=== PATIENT | male | born 1945 | race Caucasian/White ===

== ENCOUNTER 2018-09-13 17:09 | Emergency (ER) | payer MEDICARE, MEDICAID ==
[~2018-09-13] VITALS: Ht 177.8 cm; Wt 97.0 kg
[2018-09-13] MEDS ORDERED: enoxaparin 100mg/ml syringe SUBCUT ONE (18:05)
[2018-09-13 18:44] LABS: BASOPHILS % (AUTO) 0.5 % (0-1); EOSINOPHILS # (AUTO) 0.3 X10'3 (0-0.9); EOSINOPHILS % (AUTO) 3.6 % (0-6); HEMATOCRIT 39.7 % (42.0-52.0); HEMOGLOBIN 13.2 g/dl (14.0-17.9); LYMPHOCYTES # (AUTO) 2.7 X10'3 (1.1-4.8); MEAN CORPUSCULAR HEMOGLOBIN 32.2 PG (27.0-31.0); MEAN CORPUSCULAR HGB CONC 33.4 % (33.0-36.5); MEAN CORPUSCULAR VOLUME 96.6 FL (78-98); MEAN PLATELET VOLUME 7.2 FL (7.4-10.4); MONOCYTES # (AUTO) 0.8 X10'3 (0-0.9); MONOCYTES % (AUTO) 10.8 % (2-12); NEUTROPHILS # (AUTO) 3.7 X10'3 (1.8-7.7); NEUTROPHILS % (AUTO) 49.1 % (42-75); PLATELET COUNT 291 X10'3 (140-440); RED BLOOD COUNT 4.11 X10'6 (4.70-6.10); RED CELL DISTRIBUTION WIDTH 14.7 % (11.5-14.5); WHITE BLOOD COUNT 7.6 X10'3 (4.5-11.0)
[2018-09-13 19:08] LABS: PARTIAL THROMBOPLASTIN TIME 26 SECONDS (22-32); PROTHROMBIN TIME 10.2 SECONDS (9.0-12.0)
[2018-09-13 19:16] LABS: ALANINE AMINOTRANSFERASE 25 U/L (12-78); ALBUMIN 2.3 G/DL (3.4-5.0); ALBUMIN/GLOBULIN RATIO 0.4 (1.1-1.5); ALKALINE PHOSPHATASE 99 IU/L (46-116); ANION GAP 5 (8-16); ASPARTATE AMINO TRANSFERASE 17 U/L (10-37); BILIRUBIN,TOTAL 0.1 MG/DL (0.1-1.0); BLOOD UREA NITROGEN 17 MG/DL (7-18); CALCIUM 8.6 MG/DL (8.5-10.1); CHLORIDE 104 MMOL/L (99-107); CREATININE 1.13 MG/DL (0.60-1.10); GLUCOSE 108 MG/DL (70-104); POTASSIUM 3.8 MMOL/L (3.5-5.1); SODIUM 136 MMOL/L (135-145); TOTAL CARBON DIOXIDE 27.4 MMOL/L (24-32); TOTAL PROTEIN 7.6 G/DL (6.4-8.2); eGFR 64 ML/MIN
[2018-09-13 19:23] LABS: MAGNESIUM 2.1 MG/DL (1.5-2.4)
[2018-09-13] MEDS ORDERED: ENOX100S3 SQ (19:41)
[2018-09-13 19:48] VITALS: BP 140/71
== END 2018-09-13 20:29 | disposition home or self-care (01) ==
LOC: ER 17:09
DX: I82.401 Acute embolism and thrombosis of unspecified deep veins of right lower extremity (principal); I11.0 Hypertensive heart disease with heart failure; I50.9 Heart failure, unspecified; G89.29 Other chronic pain; Z88.8 Allergy status to other drugs, medicaments and biological substances; Z60.2 Problems related to living alone
CPT/HCPCS: 36415; 71045; 80053; 83735; 83880; 85025; 85610; 85730; 93005; 96372; 99284; J1650

== ENCOUNTER 2019-04-22 05:00 | Emergency (ER) | payer MEDICARE, MEDICAID ==
[~2019-04-22] VITALS: Ht 177.8 cm; Wt 116.1 kg
[~2019-04-22 05:00] MED LIST: CEPH500C5 PO
[2019-04-22] MEDS ORDERED: morphine 4 MG/ML inj SYRINge IV ONE (05:05)
[2019-04-22] MEDS ORDERED: ondansetron/PF 4mg/2ml inj IV ONE (05:05)
[2019-04-22] MEDS ORDERED: HYDR-3965 PO (05:52)
[2019-04-22] MEDS ORDERED: ONDA4TAB6 PO (05:52)
--- NOTE | 2019-04-22 06:52 | NUR ---
STILL WAITING ON CLERICAL SPECIALIST
--- NOTE | 2019-04-22 08:55 | NUR ---
have called a few times for the ortho splint. still waiting. pt has eaten breakfast.
--- NOTE | 2019-04-22 09:19 | NUR ---
pt sleeping again.
[2019-04-22 10:53] VITALS: BP 110/52
== END 2019-04-22 12:17 | disposition home or self-care (01) ==
LOC: ER 05:00
DX: S32.048A Other fracture of fourth lumbar vertebra, initial encounter for closed fracture (principal); I11.0 Hypertensive heart disease with heart failure; I50.9 Heart failure, unspecified; E78.00 Pure hypercholesterolemia, unspecified; G89.29 Other chronic pain; Z88.8 Allergy status to other drugs, medicaments and biological substances; Z79.2 Long term (current) use of antibiotics; Z79.899 Other long term (current) drug therapy; W18.39XA Other fall on same level, initial encounter; Y93.89 Activity, other specified; Y92.89 Other specified places as the place of occurrence of the external cause; Y99.8 Other external cause status
CPT/HCPCS: 72131; 72192; 96374; 96375; 99284; J2270; J2405

== ENCOUNTER 2019-05-02 10:41 | Emergency (ER) | payer MEDICARE, MEDICAID ==
[~2019-05-02] VITALS: Ht 180.3 cm; Wt 118.0 kg
[~2019-05-02 10:41] MED LIST changes: +HYDR-3965 PO; +ONDA4TAB6 PO
[2019-05-02 13:33] LABS: ALANINE AMINOTRANSFERASE 47 U/L (12-78); ALBUMIN 2.4 G/DL (3.4-5.0); ALBUMIN/GLOBULIN RATIO 0.4 (1.1-1.5); ALKALINE PHOSPHATASE 118 IU/L (46-116); ANION GAP 7 (8-16); ASPARTATE AMINO TRANSFERASE 20 U/L (10-37); BILIRUBIN,TOTAL 0.2 MG/DL (0.1-1.0); BLOOD UREA NITROGEN 15 MG/DL (7-18); CALCIUM 8.5 MG/DL (8.5-10.1); CHLORIDE 104 MMOL/L (99-107); GLUCOSE 93 MG/DL (70-104); POTASSIUM 4.4 MMOL/L (3.5-5.1); SODIUM 137 MMOL/L (135-145); TOTAL CARBON DIOXIDE 25.7 MMOL/L (24-32); TOTAL PROTEIN 8.1 G/DL (6.4-8.2); eGFR 74 ML/MIN
[2019-05-02 13:35] LABS: BASOPHILS % (AUTO) 0.3 % (0-1); EOSINOPHILS # (AUTO) 0.1 X10'3 (0-0.9); EOSINOPHILS % (AUTO) 1.6 % (0-6); HEMATOCRIT 40.4 % (42.0-52.0); HEMOGLOBIN 13.6 g/dl (14.0-17.9); LYMPHOCYTES # (AUTO) 1.4 X10'3 (1.1-4.8); LYMPHOCYTES % (AUTO) 17.9 % (21-51); MEAN CORPUSCULAR HEMOGLOBIN 33.5 PG (27.0-31.0); MEAN CORPUSCULAR HGB CONC 33.5 g/dL (33.0-36.5); MEAN CORPUSCULAR VOLUME 99.9 FL (78-98); MEAN PLATELET VOLUME 7.4 FL (7.4-10.4); MONOCYTES # (AUTO) 0.8 X10'3 (0-0.9); MONOCYTES % (AUTO) 9.9 % (2-12); NEUTROPHILS # (AUTO) 5.4 X10'3 (1.8-7.7); NEUTROPHILS % (AUTO) 70.3 % (42-75); PLATELET COUNT 287 X10'3 (140-440); RED BLOOD COUNT 4.05 X10'6 (4.70-6.10); RED CELL DISTRIBUTION WIDTH 15.6 % (11.5-14.5); WHITE BLOOD COUNT 7.7 X10'3 (4.5-11.0)
[2019-05-02] MEDS ORDERED: LORazepam 2 mg/ml vial IV ONE (13:35)
[2019-05-02 13:55] LABS: PARTIAL THROMBOPLASTIN TIME 29 SECONDS (22-32)
[2019-05-02 14:37] LABS: CLARITY,URINE SLIGHTLY CLOUDY (Clear); COLOR,URINE YELLOW (Yellow); GLUCOSE, URINE NEGATIVE (Neg); KETONES,URINE NEGATIVE (Neg); LEUKOCYTE ESTERASE ,URINE SMALL (Neg); NITRITES, URINE POSITIVE (Neg); OCCULT BLOOD,URINE NEGATIVE (Neg); PH,URINE 6.5 (4.8-8.0); PROTEIN,URINE NEGATIVE (Neg); UROBILINOGEN,URINE 0.2 E.U/dL (0.2-1.0)
[2019-05-02 14:52] LABS: UA COLLECTION TYPE STRAIGHT CATH
[2019-05-02 14:53] LABS: BACTERIA,URINE 4+ /HPF (Neg); MUCUS STRANDS FEW /LPF (Neg); RBC,URINE NONE SEEN /HPF (0-2); SQUAMOUS EPITHELIAL CELL,UR FEW /LPF (FEW); WBC CLUMPS,URINE MODERATE /HPF (NEGATIVE)
[2019-05-02] MEDS ORDERED: CefTRIAXone 2gm/D5W 50ml 50 ML IV ONE (16:00)
[2019-05-02] MEDS ORDERED: LEVO500T89 PO (16:01)
[2019-05-02 16:58] VITALS: BP 146/78
--- NOTE | 2019-05-02 17:07 | NUR ---
SAT PT ON SIDE OF BED, NO COMPLAINTS, STOOD PT UP AND URINATED ON PANTS, ATTENDS TOO SMALL, URINAL PROVIDED, DRESSED PATIENT
== END 2019-05-02 17:22 | disposition home or self-care (01) ==
LOC: ER 10:41
DX: N39.0 Urinary tract infection, site not specified (principal); G40.909 Epilepsy, unspecified, not intractable, without status epilepticus; I50.9 Heart failure, unspecified; E78.00 Pure hypercholesterolemia, unspecified; I11.0 Hypertensive heart disease with heart failure; G89.29 Other chronic pain; Z88.8 Allergy status to other drugs, medicaments and biological substances; Z79.2 Long term (current) use of antibiotics; Z79.899 Other long term (current) drug therapy; Z60.2 Problems related to living alone
CPT/HCPCS: 36415; 70450; 71045; 80053; 81001; 85025; 85610; 85730; 87077; 87088; 87186; 96365; 96375; 99284; J0696; J2060; P9612

== ENCOUNTER 2019-07-21 03:47 | Emergency (ER) | payer MEDICARE, MEDICAID ==
[~2019-07-21] VITALS: Ht 180.3 cm; Wt 115.5 kg
[~2019-07-21 03:47] MED LIST changes: -HYDR-3965 PO
--- NOTE | 2019-07-21 04:20 | NUR ---
BACK FROM CT SCAN WITH PATIENT ON MONITOR
--- NOTE | 2019-07-21 04:21 | NUR ---
REPORT TO FIDELIA CROWDER
--- NOTE | 2019-07-21 04:22 | NUR ---
ASSUMED CARE OF PATIENT, NO TRAUMA CHARTING COMPLETED, PT HAS NO IV ACCESS, NO LABS OR URINE OBTAINED.
--- NOTE | 2019-07-21 04:38 | NUR ---
PER MD MARIA PT DOESN'T NEED IV ACCESS AT THIS TIME, OKAY TO DO LAB DRAW WITH BUTTERFLY.
--- NOTE | 2019-07-21 04:56 | NUR ---
CT SCANS NORMAL, PT NO LONGER ON TRAUMA STATUS.
[2019-07-21 04:57] VITALS: BP 144/86
[2019-07-21 05:09] LABS: BASOPHILS % (AUTO) 0.2 % (0-1); EOSINOPHILS # (AUTO) 0.1 X10'3 (0-0.9); EOSINOPHILS % (AUTO) 0.6 % (0-6); HEMATOCRIT 38.3 % (42.0-52.0); HEMOGLOBIN 13.1 g/dl (14.0-17.9); LYMPHOCYTES # (AUTO) 1.8 X10'3 (1.1-4.8); LYMPHOCYTES % (AUTO) 19.5 % (21-51); MEAN CORPUSCULAR HEMOGLOBIN 34.1 PG (27.0-31.0); MEAN CORPUSCULAR HGB CONC 34.2 g/dL (33.0-36.5); MEAN CORPUSCULAR VOLUME 99.8 FL (78-98); MEAN PLATELET VOLUME 7.3 FL (7.4-10.4); MONOCYTES # (AUTO) 0.9 X10'3 (0-0.9); MONOCYTES % (AUTO) 10.3 % (2-12); NEUTROPHILS # (AUTO) 6.3 X10'3 (1.8-7.7); NEUTROPHILS % (AUTO) 69.4 % (42-75); PLATELET COUNT 241 X10'3 (140-440); RED BLOOD COUNT 3.83 X10'6 (4.70-6.10); RED CELL DISTRIBUTION WIDTH 14.7 % (11.5-14.5); WHITE BLOOD COUNT 9.1 X10'3 (4.5-11.0)
[2019-07-21] MEDS ORDERED: LIDOcaine 2% 10ml TOPICAL JELLY (Urojet) MM ONE (05:10)
[2019-07-21 05:16] LABS: PARTIAL THROMBOPLASTIN TIME 26 SECONDS (22-32)
[2019-07-21 05:21] LABS: ALANINE AMINOTRANSFERASE 38 U/L (12-78); ALBUMIN 2.6 G/DL (3.4-5.0); ALBUMIN/GLOBULIN RATIO 0.5 (1.1-1.5); ALKALINE PHOSPHATASE 91 IU/L (46-116); ANION GAP 11 (8-16); ASPARTATE AMINO TRANSFERASE 20 U/L (10-37); BILIRUBIN,TOTAL 0.2 MG/DL (0.1-1.0); BLOOD UREA NITROGEN 17 MG/DL (7-18); BUN/CREATININE RATIO 16.2 (5.4-32.0); CALCIUM 8.8 MG/DL (8.5-10.1); CHLORIDE 106 MMOL/L (99-107); CREATININE 1.05 MG/DL (0.60-1.10); ETHANOL < 0.010 GM/DL (0.0-0.010); GLUCOSE 108 MG/DL (70-104); PHENYTOIN (DILANTIN) 5.8 UG/ML (10.0-20.0); POTASSIUM 3.8 MMOL/L (3.5-5.1); SODIUM 139 MMOL/L (135-145); TOTAL CARBON DIOXIDE 22.2 MMOL/L (24-32); TOTAL PROTEIN 8.1 G/DL (6.4-8.2); eGFR 70 ML/MIN
[2019-07-21 05:37] LABS: CLARITY,URINE CLEAR (Clear); COLOR,URINE YELLOW (Yellow); GLUCOSE, URINE NEGATIVE (Neg); KETONES,URINE NEGATIVE (Neg); LEUKOCYTE ESTERASE ,URINE NEGATIVE (Neg); NITRITES, URINE NEGATIVE (Neg); OCCULT BLOOD,URINE SMALL (Neg); PH,URINE 6.5 (4.8-8.0); PROTEIN,URINE NEGATIVE (Neg); UROBILINOGEN,URINE 0.2 E.U/dL (0.2-1.0)
[2019-07-21 05:39] LABS: UA COLLECTION TYPE STRAIGHT CATH
[2019-07-21 05:40] LABS: BACTERIA,URINE NONE SEEN /HPF (Neg); RBC,URINE 0-2 /HPF (0-2); SQUAMOUS EPITHELIAL CELL,UR FEW /LPF (FEW); WBC,URINE NONE SEEN /HPF (0-4)
--- NOTE | 2019-07-21 06:09 | NUR ---
CALLED DAVEY CARGO AT 0609 FOR A RIDE BACK TO [facility]. WILL SEND DENIER CONTROL OPERATOR RHONA
== END 2019-07-21 09:52 | disposition home or self-care (01) ==
LOC: ER 03:47
DX: S00.01XA Abrasion of scalp, initial encounter (principal); G40.909 Epilepsy, unspecified, not intractable, without status epilepticus; R60.0 Localized edema; G89.29 Other chronic pain; I50.9 Heart failure, unspecified; I11.0 Hypertensive heart disease with heart failure; E78.00 Pure hypercholesterolemia, unspecified; Z88.8 Allergy status to other drugs, medicaments and biological substances; Z79.2 Long term (current) use of antibiotics; Z79.899 Other long term (current) drug therapy; Z60.2 Problems related to living alone; W18.39XA Other fall on same level, initial encounter; Y93.89 Activity, other specified; Y92.89 Other specified places as the place of occurrence of the external cause; Y99.8 Other external cause status
CPT/HCPCS: 36415; 70450; 71045; 72125; 80053; 80185; 80320; 81001; 85025; 85610; 85730; 93005; 99284; P9612

== ENCOUNTER 2019-09-01 02:37 | Emergency (ER) | payer MEDICARE, MEDICAID ==
[~2019-09-01] VITALS: Ht 167.6 cm; Wt 113.6 kg
--- NOTE | 2019-09-01 02:50 | NUR ---
SEIZURE PADS PLACED
[2019-09-01 03:02] LABS: BASOPHILS % (AUTO) 0.3 % (0-1); EOSINOPHILS # (AUTO) 0.2 X10'3 (0-0.9); EOSINOPHILS % (AUTO) 2.4 % (0-6); HEMATOCRIT 37.3 % (42.0-52.0); HEMOGLOBIN 12.8 g/dl (14.0-17.9); LYMPHOCYTES # (AUTO) 1.8 X10'3 (1.1-4.8); LYMPHOCYTES % (AUTO) 23.9 % (21-51); MEAN CORPUSCULAR HEMOGLOBIN 33.7 PG (27.0-31.0); MEAN CORPUSCULAR HGB CONC 34.4 g/dL (33.0-36.5); MEAN PLATELET VOLUME 7.6 FL (7.4-10.4); MONOCYTES # (AUTO) 0.7 X10'3 (0-0.9); NEUTROPHILS # (AUTO) 4.8 X10'3 (1.8-7.7); NEUTROPHILS % (AUTO) 64.4 % (42-75); PLATELET COUNT 233 X10'3 (140-440); RED BLOOD COUNT 3.81 X10'6 (4.70-6.10); RED CELL DISTRIBUTION WIDTH 14.5 % (11.5-14.5); WHITE BLOOD COUNT 7.5 X10'3 (4.5-11.0)
[2019-09-01 03:15] LABS: ALANINE AMINOTRANSFERASE 30 U/L (12-78); ALBUMIN 2.5 G/DL (3.4-5.0); ALBUMIN/GLOBULIN RATIO 0.5 (1.1-1.5); ALKALINE PHOSPHATASE 83 IU/L (46-116); ANION GAP 11 (8-16); ASPARTATE AMINO TRANSFERASE 18 U/L (10-37); BILIRUBIN,TOTAL 0.2 MG/DL (0.1-1.0); BLOOD UREA NITROGEN 18 MG/DL (7-18); BUN/CREATININE RATIO 16.2 (5.4-32.0); CALCIUM 8.7 MG/DL (8.5-10.1); CHLORIDE 105 MMOL/L (99-107); CREATININE 1.11 MG/DL (0.60-1.10); GLUCOSE 127 MG/DL (70-104); PHENYTOIN (DILANTIN) 5.6 UG/ML (10.0-20.0); POTASSIUM 3.2 MMOL/L (3.5-5.1); SODIUM 137 MMOL/L (135-145); TOTAL CARBON DIOXIDE 21.5 MMOL/L (24-32); eGFR 65 ML/MIN
[2019-09-01 03:17] LABS: PARTIAL THROMBOPLASTIN TIME 26 SECONDS (22-32)
[2019-09-01] MEDS ORDERED: phenytoin sod 50mg/ml 2ml vial IV STA (03:20)
[2019-09-01] MEDS ORDERED: PHENYTOIN SOD IV ONE (03:25)
[2019-09-01] MEDS ORDERED: NORMAL SALINE IV ONE (03:25)
[2019-09-01] MEDS ORDERED: POTA20TA19 PO (04:44)
--- NOTE | 2019-09-01 04:44 | NUR ---
Wound care performed at this time using NS and ABT applied. Site covered with non-adhesive dressing.
--- NOTE | 2019-09-01 04:50 | NUR ---
Two person incontinent care provided at this time.
--- NOTE | 2019-09-01 05:05 | NUR ---
[facility] called by process mold technician to coordinate transport. Per [facility], next available slot for transport is at 0900 today.
--- NOTE | 2019-09-01 05:09 | NUR ---
Report called to [facility] regarding status of patient. Facility staff named "Armando" given aftercare instructions. She was also informed of transportation status with [facility].
[2019-09-01 05:18] VITALS: BP 116/59
--- NOTE | 2019-09-01 10:31 | NUR ---
[facility] arrived to transport patient. Pt transfered to for transport back to facility.
== END 2019-09-01 10:32 | disposition home or self-care (01) ==
LOC: ER 02:38
DX: S09.90XA Unspecified injury of head, initial encounter (principal); M25.511 Pain in right shoulder; E87.6 Hypokalemia; I11.0 Hypertensive heart disease with heart failure; I50.9 Heart failure, unspecified; E78.00 Pure hypercholesterolemia, unspecified; Z86.69 Personal history of other diseases of the nervous system and sense organs; G89.29 Other chronic pain; Z60.2 Problems related to living alone; Z88.8 Allergy status to other drugs, medicaments and biological substances; Z79.899 Other long term (current) drug therapy; W18.11XA Fall from or off toilet without subsequent striking against object, initial encounter; Y93.89 Activity, other specified; Y92.091 Bathroom in other non-institutional residence as the place of occurrence of the external cause; Y99.8 Other external cause status
CPT/HCPCS: 36415; 70450; 72125; 80053; 80185; 85025; 85610; 85730; 93005; 96365; 99284; J1165

== ENCOUNTER 2019-09-23 02:50 | Emergency (ER) | payer MEDICARE, MEDICAID ==
[~2019-09-23] VITALS: Ht 180.3 cm; Wt 111.1 kg
[~2019-09-23 02:50] MED LIST changes: +POTA20TA19 PO
[2019-09-23 04:03] VITALS: BP 145/69
== END 2019-09-23 05:56 ==
LOC: ER 02:51
DX: R56.9 Unspecified convulsions (principal); M25.551 Pain in right hip; I11.0 Hypertensive heart disease with heart failure; I50.9 Heart failure, unspecified; E78.00 Pure hypercholesterolemia, unspecified; G89.29 Other chronic pain; Z60.2 Problems related to living alone; Z88.8 Allergy status to other drugs, medicaments and biological substances; Z79.899 Other long term (current) drug therapy; W18.39XA Other fall on same level, initial encounter; Y93.89 Activity, other specified; Y92.89 Other specified places as the place of occurrence of the external cause; Y99.8 Other external cause status
CPT/HCPCS: 70450; 73502; 93005; 99284

== ENCOUNTER 2019-10-02 06:35 | Emergency (ER) | payer MEDICARE, MEDICAID ==
[~2019-10-02] VITALS: Ht 185.4 cm; Wt 110.0 kg
[2019-10-02] MEDS ORDERED: morphine 2 MG/ML inj. syringe IV ONE (07:45)
[2019-10-02 08:08] LABS: BASOPHILS % (AUTO) 0 % (0-1); EOSINOPHILS % (AUTO) 0.1 % (0-6); HEMATOCRIT 38.9 % (42.0-52.0); LYMPHOCYTES # (AUTO) 1.3 X10'3 (1.1-4.8); LYMPHOCYTES % (AUTO) 9.7 % (21-51); MEAN CORPUSCULAR HEMOGLOBIN 33.4 PG (27.0-31.0); MEAN CORPUSCULAR HGB CONC 33.5 g/dL (33.0-36.5); MEAN CORPUSCULAR VOLUME 99.6 FL (78-98); MEAN PLATELET VOLUME 7.5 FL (7.4-10.4); NEUTROPHILS # (AUTO) 10.7 X10'3 (1.8-7.7); NEUTROPHILS % (AUTO) 82.2 % (42-75); PLATELET COUNT 243 X10'3 (140-440); RED CELL DISTRIBUTION WIDTH 14.7 % (11.5-14.5)
[2019-10-02 08:19] LABS: ALANINE AMINOTRANSFERASE 45 U/L (12-78); ALBUMIN 2.8 G/DL (3.4-5.0); ALBUMIN/GLOBULIN RATIO 0.5 (1.1-1.5); ALKALINE PHOSPHATASE 97 IU/L (46-116); ANION GAP 5 (8-16); ASPARTATE AMINO TRANSFERASE 28 U/L (10-37); BILIRUBIN,TOTAL 0.3 MG/DL (0.1-1.0); BLOOD UREA NITROGEN 20 MG/DL (7-18); BUN/CREATININE RATIO 18.5 (5.4-32.0); CALCIUM 8.9 MG/DL (8.5-10.1); CHLORIDE 106 MMOL/L (99-107); CREATININE 1.08 MG/DL (0.60-1.10); GLUCOSE 135 MG/DL (70-104); PHENYTOIN (DILANTIN) 5.2 UG/ML (10.0-20.0); SODIUM 136 MMOL/L (135-145); TOTAL CARBON DIOXIDE 24.6 MMOL/L (24-32); TOTAL PROTEIN 7.9 G/DL (6.4-8.2); eGFR 67 ML/MIN
[2019-10-02 08:28] VITALS: BP 124/70
[2019-10-02] MEDS ORDERED: morphine 4 MG/ML inj SYRINge IV ONE (09:40)
[2019-10-02] MEDS ORDERED: phenytoin sod ER 100mg capsule PO STA (09:49)
--- NOTE | 2019-10-02 10:33 | NUR ---
[facility] CALLED FOR TRANSPORT.
== END 2019-10-02 13:00 | disposition home or self-care (01) ==
LOC: ER 06:36
DX: S09.90XA Unspecified injury of head, initial encounter (principal); R42 Dizziness and giddiness; R79.0 Abnormal level of blood mineral; R60.0 Localized edema; E78.00 Pure hypercholesterolemia, unspecified; G89.29 Other chronic pain; I11.0 Hypertensive heart disease with heart failure; I50.9 Heart failure, unspecified; Z88.8 Allergy status to other drugs, medicaments and biological substances; Z79.01 Long term (current) use of anticoagulants; Z86.718 Personal history of other venous thrombosis and embolism; W01.198A Fall on same level from slipping, tripping and stumbling with subsequent striking against other object, initial encounter; Y93.89 Activity, other specified; Y92.89 Other specified places as the place of occurrence of the external cause; Y99.9 Unspecified external cause status
CPT/HCPCS: 36415; 70450; 72170; 80053; 80185; 85025; 96374; 99284; J2270

== ENCOUNTER 2019-10-05 20:55 | Inpatient (IN) | payer MEDICARE, MEDICAID ==
[~2019-10-05] VITALS: Ht 180.3 cm; Wt 102.5 kg
[~2019-10-05 20:55] MED LIST changes: -POTA20TA19 PO
[2019-10-05 21:39] LABS: BASOPHILS % (AUTO) 0.2 % (0-1); EOSINOPHILS # (AUTO) 0.1 X10'3 (0-0.9); EOSINOPHILS % (AUTO) 0.6 % (0-6); HEMATOCRIT 38.8 % (42.0-52.0); HEMOGLOBIN 13.3 g/dl (14.0-17.9); LYMPHOCYTES # (AUTO) 1.6 X10'3 (1.1-4.8); LYMPHOCYTES % (AUTO) 11.8 % (21-51); MEAN CORPUSCULAR HEMOGLOBIN 33.8 PG (27.0-31.0); MEAN CORPUSCULAR HGB CONC 34.3 g/dL (33.0-36.5); MEAN CORPUSCULAR VOLUME 98.7 FL (78-98); MEAN PLATELET VOLUME 7.4 FL (7.4-10.4); MONOCYTES # (AUTO) 1.6 X10'3 (0-0.9); MONOCYTES % (AUTO) 12.1 % (2-12); NEUTROPHILS # (AUTO) 10.1 X10'3 (1.8-7.7); NEUTROPHILS % (AUTO) 75.3 % (42-75); PLATELET COUNT 204 X10'3 (140-440); RED BLOOD COUNT 3.93 X10'6 (4.70-6.10); RED CELL DISTRIBUTION WIDTH 14.8 % (11.5-14.5); WHITE BLOOD COUNT 13.5 X10'3 (4.5-11.0)
[2019-10-05 21:47] LABS: D-DIMER 2.11 MG/L FEU (0-0.50); PARTIAL THROMBOPLASTIN TIME 30 SECONDS (22-32)
[2019-10-05] MEDS ORDERED: QUET100T33 PO (21:47)
[2019-10-05] MEDS ORDERED: LAMO25TA5 PO (21:47)
[2019-10-05] MEDS ORDERED: MAGN400C PO (21:47)
[2019-10-05] MEDS ORDERED: FURO20TA4 PO (21:47)
[2019-10-05] MEDS ORDERED: FEXO-62 PO (21:47)
[2019-10-05] MEDS ORDERED: LORA10TA7 PO (21:47)
[2019-10-05] MEDS ORDERED: FLO0.4C PO (21:47)
[2019-10-05] MEDS ORDERED: ACET-2119 PO (21:47)
[2019-10-05] MEDS ORDERED: METH1TAB32 PO (21:47)
[2019-10-05] MEDS ORDERED: TOP100T PO (21:47)
[2019-10-05] MEDS ORDERED: RISP2TAB3 PO (21:47)
[2019-10-05] MEDS ORDERED: DOCU100C41 PO (21:47)
[2019-10-05] MEDS ORDERED: FLUT16SP26 NAS (21:47)
[2019-10-05] MEDS ORDERED: SIMV-42 PO (21:47)
[2019-10-05] MEDS ORDERED: POTA20TA19 PO (21:47)
[2019-10-05] MEDS ORDERED: APIX2.5T PO (21:47)
[2019-10-05] MEDS ORDERED: CHOL500061 (21:47)
[2019-10-05] MEDS ORDERED: MULT-933 PO (21:47)
[2019-10-05] MEDS ORDERED: CYAN100097 PO (21:47)
[2019-10-05] MEDS ORDERED: FERR325T28 PO (21:47)
[2019-10-05] MEDS ORDERED: PHEN100C12 PO (21:47)
[2019-10-05] MEDS ORDERED: CALC-1197 PO (21:47)
[2019-10-05 21:51] LABS: ALANINE AMINOTRANSFERASE 59 U/L (12-78); ALBUMIN 2.6 G/DL (3.4-5.0); ALBUMIN/GLOBULIN RATIO 0.5 (1.1-1.5); ALKALINE PHOSPHATASE 87 IU/L (46-116); ANION GAP 8 (8-16); ASPARTATE AMINO TRANSFERASE 28 U/L (10-37); BILIRUBIN,TOTAL 0.4 MG/DL (0.1-1.0); BLOOD UREA NITROGEN 19 MG/DL (7-18); BUN/CREATININE RATIO 18.4 (5.4-32.0); CALCIUM 8.8 MG/DL (8.5-10.1); CHLORIDE 105 MMOL/L (99-107); CREATININE 1.03 MG/DL (0.60-1.10); GLUCOSE 127 MG/DL (70-104); LIPASE 88 U/L (73-393); POTASSIUM 3.9 MMOL/L (3.5-5.1); SODIUM 137 MMOL/L (135-145); TOTAL CARBON DIOXIDE 23.6 MMOL/L (24-32); TOTAL PROTEIN 8.1 G/DL (6.4-8.2); eGFR 71 ML/MIN
[2019-10-05 22:27] LABS: CLARITY,URINE CLEAR (Clear); COLOR,URINE AMBER (Yellow); GLUCOSE, URINE NEGATIVE (Neg); KETONES,URINE NEGATIVE (Neg); LEUKOCYTE ESTERASE ,URINE NEGATIVE (Neg); NITRITES, URINE NEGATIVE (Neg); OCCULT BLOOD,URINE TRACE-INTACT (Neg); PH,URINE 6.5 (4.8-8.0); PROTEIN,URINE TRACE mg/dl (Neg); UROBILINOGEN,URINE 0.2 E.U/dL (0.2-1.0)
[2019-10-05 22:28] LABS: UA COLLECTION TYPE STRAIGHT CATH
[2019-10-05 22:41] LABS: BACTERIA,URINE NONE SEEN /HPF (Neg); MUCUS STRANDS MODERATE /LPF (Neg); SQUAMOUS EPITHELIAL CELL,UR FEW /LPF (FEW); WBC,URINE 0-4 /HPF (0-4)
[2019-10-05] MEDS ORDERED: CefTRIAXone/D5W-Rocephin 1gm 50 ML IV ONE (22:50)
[2019-10-05] MEDS ORDERED: iohexol 350MG/ML 100ml bottle IV ONE (23:10)
[2019-10-05] MEDS ORDERED: magnesium hydroxide 30ml (MOM) UD suspension PO PRN (23:15)
[2019-10-05] MEDS ORDERED: acetaminophen 325mg tablet PO PRN (23:15)
[2019-10-05] MEDS ORDERED: mag hydrox/Alum hydrox/simeth 30ml oral suspension PO PRN (23:15)
[2019-10-05] MEDS ORDERED: ondansetron/PF 4mg/2ml inj IV PRN (23:15)
[2019-10-06] MEDS: normal saline 1000ml 1,000 ML IV SCH (00:30)
[2019-10-06 02:00] VITALS: BP 132/72
--- NOTE | 2019-10-06 02:36 | NUR ---
pt incont of urine upon arrival to unit, pt had scant bright red blood noted from penis Addendum: 10/06/19 at 0243 by Dania Knight RN Amended: Links added.
[2019-10-06] MEDS ORDERED: FLU VACC QS2019-20 36MOS UP/PF 60 MCG/0.5 ML SYRINGE IMVAC ONE (03:30)
[2019-10-06] MEDS ORDERED: pneumococcal 23-VAL P-sac vacc 25 mcg/0.5ml vial IMVAC ONE (03:30)
[2019-10-06 06:12] LABS: BASOPHILS % (AUTO) 0.1 % (0-1); EOSINOPHILS % (AUTO) 0.3 % (0-6); HEMATOCRIT 37.4 % (42.0-52.0); HEMOGLOBIN 12.9 g/dl (14.0-17.9); LYMPHOCYTES # (AUTO) 2.1 X10'3 (1.1-4.8); LYMPHOCYTES % (AUTO) 14.7 % (21-51); MEAN CORPUSCULAR HEMOGLOBIN 33.7 PG (27.0-31.0); MEAN CORPUSCULAR HGB CONC 34.4 g/dL (33.0-36.5); MEAN PLATELET VOLUME 7.3 FL (7.4-10.4); MONOCYTES # (AUTO) 1.6 X10'3 (0-0.9); MONOCYTES % (AUTO) 11.3 % (2-12); NEUTROPHILS # (AUTO) 10.4 X10'3 (1.8-7.7); NEUTROPHILS % (AUTO) 73.6 % (42-75); PLATELET COUNT 199 X10'3 (140-440); RED BLOOD COUNT 3.82 X10'6 (4.70-6.10); RED CELL DISTRIBUTION WIDTH 14.5 % (11.5-14.5); WHITE BLOOD COUNT 14.1 X10'3 (4.5-11.0)
[2019-10-06 06:18] LABS: ALANINE AMINOTRANSFERASE 56 U/L (12-78); ALBUMIN 2.4 G/DL (3.4-5.0); ALBUMIN/GLOBULIN RATIO 0.5 (1.1-1.5); ALKALINE PHOSPHATASE 82 IU/L (46-116); ANION GAP 10 (8-16); ASPARTATE AMINO TRANSFERASE 28 U/L (10-37); BILIRUBIN,TOTAL 0.4 MG/DL (0.1-1.0); BLOOD UREA NITROGEN 17 MG/DL (7-18); BUN/CREATININE RATIO 17.7 (5.4-32.0); CHLORIDE 106 MMOL/L (99-107); CREATININE 0.96 MG/DL (0.60-1.10); GLUCOSE 113 MG/DL (70-104); POTASSIUM 3.9 MMOL/L (3.5-5.1); SODIUM 138 MMOL/L (135-145); TOTAL CARBON DIOXIDE 22.1 MMOL/L (24-32); TOTAL PROTEIN 7.7 G/DL (6.4-8.2); eGFR 77 ML/MIN
[2019-10-06 07:00] VITALS: BP 152/76
--- NOTE | 2019-10-06 08:22 | NUR ---
PAGER ID: [phone] MESSAGE: [phone] LASHONDA VORA I COLLECTED A THICK GREEN SPUTUM SAMPLE, WOULD YOU LIKE ME TO SEND IT? RUSSEL [phone]
--- NOTE | 2019-10-06 08:27 | NUR ---
patient gave sputum sample, suction at bedside for exportation. Addendum: 10/06/19 at 0832 by Nikki Hernandez RN Amended: Links added.
--- NOTE | 2019-10-06 08:36 | NUR ---
PAGER ID: [phone] MESSAGE: [phone] Nik Kearney would you like a Respitory added? Nikki
[2019-10-06] MEDS: CefTRIAXone/D5W-Rocephin 1gm 50 ML IV SCH (08:57)
[2019-10-06] MEDS: tamsulosin 0.4mg capsule PO SCH (08:57)
[2019-10-06] MEDS: risperiDONE 2mg tablet PO SCH ×2 (08:57→20:16)
[2019-10-06] MEDS: magnesium oxide 400mg tablet PO SCH ×2 (08:57→20:16)
[2019-10-06] MEDS: phenytoin sod ER 100mg capsule PO SCH (08:57)
[2019-10-06] MEDS: apixaban 2.5mg tablet PO SCH ×2 (08:57→20:16)
[2019-10-06] MEDS: lamoTRIgine 25mg tablet PO SCH ×2 (08:57→20:11)
[2019-10-06] MEDS: ipratropium/albuterol 3ml nebule NEB SCH ×3 (09:50→21:05)
[2019-10-06] MEDS ORDERED: ipratropium/albuterol 3ml nebule NEB ONE (09:50)
[2019-10-06 10:00] VITALS: BP 146/78
[2019-10-06] MEDS ORDERED: ipratropium/albuterol 3ml nebule NEB SCH (14:00)
[2019-10-06] MEDS: topiramate 100mg tablet PO SCH ×2 (15:44→20:11)
[2019-10-06 18:00] VITALS: BP 143/68
--- NOTE | 2019-10-06 18:15 | NUR ---
Received patient report from LAKESHA Jordan. Assumed patient care.
--- NOTE | 2019-10-06 18:20 | NUR ---
Received report from Nikki CROWDER. assumed care of patient
--- NOTE | 2019-10-06 18:27 | NUR ---
Problems reprioritized. Patient report given, questions answered & plan of care reviewed with Ana RN.
[2019-10-06] MEDS: methenamine hippurate 1gm tablet PO SCH ×2 (20:00→21:00)
[2019-10-06] MEDS: atorvastatin 10mg tablet PO SCH (20:11)
[2019-10-06] MEDS: quetiapine 100mg tablet PO SCH (20:11)
--- NOTE | 2019-10-06 20:50 | NUR ---
Noted patient has field start in left hand. currently patent, flushes and asymptomatic. attempted to insert an IV--2 failed attempts by me, and 2 attempts by charge nurse with no success. Patient's current IV is patent. reevaluate tomorrow with day shift.
[2019-10-06 22:00] VITALS: BP 159/72
[2019-10-07] MEDS: ipratropium/albuterol 3ml nebule NEB SCH ×4 (02:23→20:01)
[2019-10-07 06:00] VITALS: BP 136/71
--- NOTE | 2019-10-07 06:00 | NUR ---
Patient in room ORTHO 4017. I have received report from Ana CROWDER and had the opportunity to ask questions and assume patient care.
[2019-10-07 06:21] LABS: BASOPHILS % (AUTO) 0.3 % (0-1); EOSINOPHILS # (AUTO) 0.2 X10'3 (0-0.9); EOSINOPHILS % (AUTO) 1.5 % (0-6); HEMATOCRIT 36.2 % (42.0-52.0); HEMOGLOBIN 12.2 g/dl (14.0-17.9); LYMPHOCYTES % (AUTO) 13.8 % (21-51); MEAN CORPUSCULAR HEMOGLOBIN 33.6 PG (27.0-31.0); MEAN CORPUSCULAR HGB CONC 33.7 g/dL (33.0-36.5); MEAN CORPUSCULAR VOLUME 99.9 FL (78-98); MEAN PLATELET VOLUME 7.6 FL (7.4-10.4); MONOCYTES # (AUTO) 1.6 X10'3 (0-0.9); MONOCYTES % (AUTO) 10.6 % (2-12); NEUTROPHILS # (AUTO) 10.9 X10'3 (1.8-7.7); NEUTROPHILS % (AUTO) 73.8 % (42-75); PLATELET COUNT 208 X10'3 (140-440); RED BLOOD COUNT 3.63 X10'6 (4.70-6.10); RED CELL DISTRIBUTION WIDTH 14.9 % (11.5-14.5); WHITE BLOOD COUNT 14.7 X10'3 (4.5-11.0)
--- NOTE | 2019-10-07 06:25 | NUR ---
Gave report to Nikki CROWDER.
[2019-10-07 06:28] LABS: ALANINE AMINOTRANSFERASE 62 U/L (12-78); ALBUMIN 2.3 G/DL (3.4-5.0); ALBUMIN/GLOBULIN RATIO 0.4 (1.1-1.5); ALKALINE PHOSPHATASE 85 IU/L (46-116); ANION GAP 8 (8-16); ASPARTATE AMINO TRANSFERASE 40 U/L (10-37); BILIRUBIN,TOTAL 0.6 MG/DL (0.1-1.0); BLOOD UREA NITROGEN 21 MG/DL (7-18); BUN/CREATININE RATIO 18.8 (5.4-32.0); CALCIUM 8.9 MG/DL (8.5-10.1); CHLORIDE 105 MMOL/L (99-107); CREATININE 1.12 MG/DL (0.60-1.10); GLUCOSE 115 MG/DL (70-104); POTASSIUM 3.8 MMOL/L (3.5-5.1); SODIUM 136 MMOL/L (135-145); TOTAL CARBON DIOXIDE 22.6 MMOL/L (24-32); TOTAL PROTEIN 7.6 G/DL (6.4-8.2); eGFR 64 ML/MIN
[2019-10-07] MEDS: lamoTRIgine 25mg tablet PO SCH ×2 (07:53→20:18)
[2019-10-07] MEDS: furosemide 20 MG/2 ML vial IV SCH ×2 (07:53→20:17)
[2019-10-07] MEDS: apixaban 2.5mg tablet PO SCH ×2 (07:54→20:18)
[2019-10-07] MEDS: phenytoin sod ER 100mg capsule PO SCH (07:54)
[2019-10-07] MEDS: tamsulosin 0.4mg capsule PO SCH (07:54)
[2019-10-07] MEDS: topiramate 100mg tablet PO SCH ×2 (07:54→20:18)
[2019-10-07] MEDS: magnesium oxide 400mg tablet PO SCH ×2 (07:54→20:17)
[2019-10-07] MEDS: risperiDONE 2mg tablet PO SCH ×2 (07:55→20:17)
[2019-10-07] MEDS: methenamine hippurate 1gm tablet PO SCH ×2 (08:00→20:00)
[2019-10-07] MEDS: CefTRIAXone/D5W-Rocephin 1gm 50 ML IV SCH (08:01)
[2019-10-07 08:07] VITALS: BP 156/86
[2019-10-07 10:00] VITALS: BP 137/71
[2019-10-07] MEDS: VANCOMYCIN 1gm/H2O 200ml PB 200 ML IV SCH ×2 (13:31→13:45)
--- NOTE | 2019-10-07 17:59 | NUR ---
Spoke with pharmicist Madan, he stated not to give the second loading dose. Patient weight was documented at 225.1 Kilos. Otoniel ordered for 0200
[2019-10-07 18:00] VITALS: BP 136/79
--- NOTE | 2019-10-07 18:16 | NUR ---
Problems reprioritized. Patient report given, questions answered & plan of care reviewed with Marissa CROWDER.
[2019-10-07] MEDS: quetiapine 100mg tablet PO SCH (20:17)
[2019-10-07] MEDS: atorvastatin 10mg tablet PO SCH (20:17)
[2019-10-07] MEDS: lactobacillus rhamnosus 10,000 MMU CELLS/CAPSULE PO SCH (20:18)
[2019-10-07 22:00] VITALS: BP 139/74
[2019-10-08] MEDS: ipratropium/albuterol 3ml nebule NEB SCH ×4 (02:05→19:58)
[2019-10-08] MEDS: normal saline 1000ml 1,000 ML IV SCH (02:07)
--- NOTE | 2019-10-08 06:10 | NUR ---
Patient report given, questions answered and plan of care reviewed with LAKESHA Acosta.
[2019-10-08 06:21] LABS: BASOPHILS # (AUTO) 0.1 X10'3 (0-0.2); BASOPHILS % (AUTO) 0.5 % (0-1); EOSINOPHILS # (AUTO) 0.4 X10'3 (0-0.9); HEMATOCRIT 35.7 % (42.0-52.0); LYMPHOCYTES # (AUTO) 2.2 X10'3 (1.1-4.8); MEAN CORPUSCULAR HEMOGLOBIN 33.3 PG (27.0-31.0); MEAN CORPUSCULAR HGB CONC 33.5 g/dL (33.0-36.5); MEAN CORPUSCULAR VOLUME 99.6 FL (78-98); MEAN PLATELET VOLUME 7.9 FL (7.4-10.4); MONOCYTES % (AUTO) 8.9 % (2-12); NEUTROPHILS % (AUTO) 68.6 % (42-75); PLATELET COUNT 200 X10'3 (140-440); RED BLOOD COUNT 3.59 X10'6 (4.70-6.10); RED CELL DISTRIBUTION WIDTH 14.9 % (11.5-14.5); WHITE BLOOD COUNT 11.6 X10'3 (4.5-11.0)
[2019-10-08 06:44] LABS: ALBUMIN 2.1 G/DL (3.4-5.0); ANION GAP 10 (8-16); BLOOD UREA NITROGEN 26 MG/DL (7-18); BUN/CREATININE RATIO 22.6 (5.4-32.0); CALCIUM 8.3 MG/DL (8.5-10.1); CHLORIDE 104 MMOL/L (99-107); CREATININE 1.15 MG/DL (0.60-1.10); GLUCOSE 102 MG/DL (70-104); POTASSIUM 3.7 MMOL/L (3.5-5.1); SODIUM 136 MMOL/L (135-145); TOTAL CARBON DIOXIDE 22.4 MMOL/L (24-32); eGFR 63 ML/MIN
[2019-10-08 06:46] VITALS: BP 134/71
--- NOTE | 2019-10-08 06:47 | NUR ---
Patient in room ORTHO 4017. I have received report from RICKEY CROWDER and had the opportunity to ask questions and assume patient care.
[2019-10-08] MEDS: methenamine hippurate 1gm tablet PO SCH ×2 (08:00→20:00)
[2019-10-08] MEDS: furosemide 20 MG/2 ML vial IV SCH ×2 (09:36→19:50)
[2019-10-08] MEDS: CefTRIAXone/D5W-Rocephin 1gm 50 ML IV SCH (09:37)
[2019-10-08] MEDS: lactobacillus rhamnosus 10,000 MMU CELLS/CAPSULE PO SCH ×2 (09:41→19:36)
[2019-10-08] MEDS: phenytoin sod ER 100mg capsule PO SCH (09:41)
[2019-10-08] MEDS: tamsulosin 0.4mg capsule PO SCH (09:42)
[2019-10-08] MEDS: lamoTRIgine 25mg tablet PO SCH ×2 (09:42→19:36)
[2019-10-08] MEDS: risperiDONE 2mg tablet PO SCH ×2 (09:42→19:36)
[2019-10-08] MEDS: magnesium oxide 400mg tablet PO SCH ×2 (09:42→19:36)
[2019-10-08] MEDS: apixaban 2.5mg tablet PO SCH ×2 (09:42→19:36)
[2019-10-08] MEDS: topiramate 100mg tablet PO SCH ×2 (09:43→19:36)
[2019-10-08 10:00] VITALS: BP 148/81
[2019-10-08] MEDS ORDERED: VANCOMYCIN LEVEL IV ONE (11:30)
--- NOTE | 2019-10-08 16:30 | NUR ---
PHONE CALL TO PT BROTHER, SVETA VORA, FROM DR. VILLAGRAN ON SPEAKER PHONE WITH PT AND MARLENY CROWDER. PT IS VERY SLEEPY UNABLE TO STAY AWAKE. ADVISED PT IS ON 2 STRONG ABX, HOWEVER, PT IS WEAK, FAILURE TO THRIVE, BUT WILL CONTINUE TO MONITOR AND TAKE IT DAY BY DAY.
[2019-10-08 18:00] VITALS: BP 130/66
--- NOTE | 2019-10-08 18:18 | NUR ---
Patient in room ORTHO 4017. I have received report from Karla CROWDER and had the opportunity to ask questions and assume patient care.
--- NOTE | 2019-10-08 18:40 | NUR ---
Paged Dr. Seals PAGER ID: [phone] MESSAGE: [phone] Nik Kearney, 74 yo male sz disorder, poss. thrush on tongue. Day shift. Can we get antifungal med? Thanks Opal [phone] Addendum: 10/08/19 at 1849 by Opal Branch RN Bozena dickerson oral nystatin
[2019-10-08 19:43] VITALS: BP 135/76
[2019-10-08 20:00] VITALS: BP 136/65
[2019-10-08] MEDS: atorvastatin 10mg tablet PO SCH (20:05)
[2019-10-08] MEDS: quetiapine 100mg tablet PO SCH (20:05)
[2019-10-08] MEDS: nystatin 500,000 unit/5ML UD oral suspension PO SCH (20:06)
[2019-10-09] MEDS ORDERED: VANCOMYCIN LEVEL IV ONE ×2 (01:30→13:30)
[2019-10-09] MEDS: ipratropium/albuterol 3ml nebule NEB SCH ×4 (01:41→20:06)
[2019-10-09 06:00] VITALS: BP 144/67
--- NOTE | 2019-10-09 06:20 | NUR ---
Problems reprioritized. Patient report given, questions answered & plan of care reviewed with Karla CROWDER.
--- NOTE | 2019-10-09 06:30 | NUR ---
Patient in room ORTHO 4017. I have received report from SELENA CROWDER and had the opportunity to ask questions and assume patient care.
[2019-10-09] MEDS: furosemide 20 MG/2 ML vial IV SCH ×2 (08:09→19:34)
[2019-10-09 08:15] LABS: ANION GAP 6 (8-16); BLOOD UREA NITROGEN 26 MG/DL (7-18); BUN/CREATININE RATIO 23.4 (5.4-32.0); CALCIUM 8.4 MG/DL (8.5-10.1); CHLORIDE 104 MMOL/L (99-107); CREATININE 1.11 MG/DL (0.60-1.10); GLUCOSE 94 MG/DL (70-104); POTASSIUM 3.6 MMOL/L (3.5-5.1); SODIUM 136 MMOL/L (135-145); TOTAL CARBON DIOXIDE 26.4 MMOL/L (24-32); eGFR 65 ML/MIN
[2019-10-09] MEDS: lactobacillus rhamnosus 10,000 MMU CELLS/CAPSULE PO SCH ×2 (08:16→19:34)
[2019-10-09 08:17] LABS: BASOPHILS % (AUTO) 0.5 % (0-1); EOSINOPHILS # (AUTO) 0.4 X10'3 (0-0.9); EOSINOPHILS % (AUTO) 3.9 % (0-6); HEMATOCRIT 33.6 % (42.0-52.0); HEMOGLOBIN 11.3 g/dl (14.0-17.9); LYMPHOCYTES # (AUTO) 1.8 X10'3 (1.1-4.8); LYMPHOCYTES % (AUTO) 19.1 % (21-51); MEAN CORPUSCULAR HEMOGLOBIN 33.5 PG (27.0-31.0); MEAN CORPUSCULAR HGB CONC 33.7 g/dL (33.0-36.5); MEAN CORPUSCULAR VOLUME 99.2 FL (78-98); MEAN PLATELET VOLUME 7.9 FL (7.4-10.4); MONOCYTES # (AUTO) 0.8 X10'3 (0-0.9); NEUTROPHILS # (AUTO) 6.3 X10'3 (1.8-7.7); NEUTROPHILS % (AUTO) 67.5 % (42-75); PLATELET COUNT 225 X10'3 (140-440); RED BLOOD COUNT 3.39 X10'6 (4.70-6.10); RED CELL DISTRIBUTION WIDTH 14.5 % (11.5-14.5); WHITE BLOOD COUNT 9.3 X10'3 (4.5-11.0)
[2019-10-09] MEDS: phenytoin sod ER 100mg capsule PO SCH (08:17)
[2019-10-09] MEDS: tamsulosin 0.4mg capsule PO SCH (08:18)
[2019-10-09] MEDS: nystatin 500,000 unit/5ML UD oral suspension PO SCH ×3 (08:18→20:18)
[2019-10-09] MEDS: magnesium oxide 400mg tablet PO SCH ×2 (08:18→19:34)
[2019-10-09] MEDS: apixaban 2.5mg tablet PO SCH ×2 (08:18→19:34)
[2019-10-09] MEDS: lamoTRIgine 25mg tablet PO SCH ×2 (08:18→19:34)
[2019-10-09] MEDS: topiramate 100mg tablet PO SCH ×3 (08:19→19:34)
[2019-10-09] MEDS: risperiDONE 2mg tablet PO SCH ×2 (08:19→19:34)
[2019-10-09] MEDS: CefTRIAXone/D5W-Rocephin 1gm 50 ML IV SCH (08:23)
[2019-10-09 10:00] VITALS: BP 122/68
[2019-10-09 17:00] VITALS: BP 129/69
[2019-10-09] MEDS: VANCOmycin 1250MG/NS 250ml Bag 250 ML IV SCH (17:06)
--- NOTE | 2019-10-09 18:08 | NUR ---
Patient in room ORTHO 4017. I have received report from Karla CROWDER and had the opportunity to ask questions and assume patient care.
--- NOTE | 2019-10-09 18:09 | NUR ---
Problems reprioritized. Patient report given, questions answered & plan of care reviewed with matt luis.
[2019-10-09 19:34] VITALS: BP 135/65
[2019-10-09] MEDS: albuterol 2.5 MG/3 ML nebule NEB SCH (20:00)
[2019-10-09] MEDS: quetiapine 100mg tablet PO SCH (20:18)
[2019-10-09] MEDS: atorvastatin 10mg tablet PO SCH (20:18)
[2019-10-09 21:49] VITALS: BP 136/69
--- NOTE | 2019-10-09 23:57 | NUR ---
Problems reprioritized. Patient report given, questions answered & plan of care reviewed with Farheen CROWDER.
--- NOTE | 2019-10-10 00:30 | NUR ---
ASSUMED CARE OF PT , ASSESSMENT CONTINUES SAME PER EVALUATION DONE EARLIER THIS SHIFT , PT ASSIST TO TURN AND SKIN CARE GIVEN , Addendum: 10/10/19 at 0407 by Farheen Skinner RN Amended: Links added.
[2019-10-10] MEDS: albuterol 2.5 MG/3 ML nebule NEB SCH (02:00)
[2019-10-10] MEDS: ipratropium/albuterol 3ml nebule NEB SCH ×3 (02:32→14:00)
[2019-10-10] MEDS: VANCOmycin 1250MG/NS 250ml Bag 250 ML IV SCH (05:20)
[2019-10-10 06:00] VITALS: BP 116/57
--- NOTE | 2019-10-10 06:10 | NUR ---
Patient in room ORTHO 4017. I have received report from SALEEM CROWDER and had the opportunity to ask questions and assume patient care.
[2019-10-10 06:29] LABS: ANION GAP 9 (8-16); BLOOD UREA NITROGEN 22 MG/DL (7-18); BUN/CREATININE RATIO 21.4 (5.4-32.0); CALCIUM 8.2 MG/DL (8.5-10.1); CHLORIDE 103 MMOL/L (99-107); CREATININE 1.03 MG/DL (0.60-1.10); GLUCOSE 102 MG/DL (70-104); POTASSIUM 3.4 MMOL/L (3.5-5.1); SODIUM 137 MMOL/L (135-145); TOTAL CARBON DIOXIDE 24.8 MMOL/L (24-32); eGFR 71 ML/MIN
[2019-10-10 06:32] LABS: BASOPHILS % (AUTO) 0.3 % (0-1); EOSINOPHILS # (AUTO) 0.3 X10'3 (0-0.9); EOSINOPHILS % (AUTO) 3.5 % (0-6); HEMATOCRIT 33.8 % (42.0-52.0); HEMOGLOBIN 11.6 g/dl (14.0-17.9); LYMPHOCYTES # (AUTO) 1.7 X10'3 (1.1-4.8); LYMPHOCYTES % (AUTO) 21.9 % (21-51); MEAN CORPUSCULAR HEMOGLOBIN 33.8 PG (27.0-31.0); MEAN CORPUSCULAR HGB CONC 34.3 g/dL (33.0-36.5); MEAN CORPUSCULAR VOLUME 98.4 FL (78-98); MEAN PLATELET VOLUME 7.5 FL (7.4-10.4); MONOCYTES # (AUTO) 0.9 X10'3 (0-0.9); MONOCYTES % (AUTO) 11.3 % (2-12); NEUTROPHILS # (AUTO) 4.9 X10'3 (1.8-7.7); PLATELET COUNT 250 X10'3 (140-440); RED BLOOD COUNT 3.43 X10'6 (4.70-6.10); RED CELL DISTRIBUTION WIDTH 14.7 % (11.5-14.5); WHITE BLOOD COUNT 7.8 X10'3 (4.5-11.0)
[2019-10-10] MEDS: phenytoin sod ER 100mg capsule PO SCH (07:33)
[2019-10-10] MEDS: risperiDONE 2mg tablet PO SCH (07:33)
[2019-10-10] MEDS: furosemide 20 MG/2 ML vial IV SCH (07:33)
[2019-10-10] MEDS: magnesium oxide 400mg tablet PO SCH (07:33)
[2019-10-10] MEDS: lamoTRIgine 25mg tablet PO SCH (07:33)
[2019-10-10] MEDS: lactobacillus rhamnosus 10,000 MMU CELLS/CAPSULE PO SCH (07:33)
[2019-10-10] MEDS: apixaban 2.5mg tablet PO SCH (07:33)
[2019-10-10] MEDS: tamsulosin 0.4mg capsule PO SCH (07:33)
[2019-10-10] MEDS: topiramate 100mg tablet PO SCH (07:34)
[2019-10-10] MEDS: nystatin 500,000 unit/5ML UD oral suspension PO SCH ×2 (07:34→13:17)
[2019-10-10] MEDS: CefTRIAXone/D5W-Rocephin 1gm 50 ML IV SCH (07:34)
[2019-10-10 08:14] LABS: MAGNESIUM 2.3 MG/DL (1.5-2.4)
[2019-10-10 10:00] VITALS: BP 134/75
[2019-10-10] MEDS ORDERED: potassium Cl 20 mEq SR tablet PO PRN ×2 (13:00)
[2019-10-10] MEDS ORDERED: potassium CL 10mEq/100ml bag 100 ML IV PRN (13:00)
[2019-10-10] MEDS ORDERED: FLU VACC QS2019-20 36MOS UP/PF 60 MCG/0.5 ML SYRINGE IMVAC ONE (13:25)
--- NOTE | 2019-10-10 15:07 | NUR ---
Nutrition Consult: RE "poor PO, may need ONS." Pt admit w/ possible aspiration PNA, AOx2, oral thrush, L2 and R hip fractures, mild CHF, and hx seizure disorder per MD. Morbid obesity w/ deconditioning and likely FTT per MD note. Advanced to pureed/heart healthy/thin liquids per SP today. Pt PO was poor roughly 24 hours at 0% PO but overall PO 75-100% meals including PO today meeting needs. LBM 10/09. Will continue to monitor for ONS needs if PO declines. Rec: 1. continue pureed/heart healthy/thin liquids diet per SP 2. routine bowel care 3. wt per rx Addendum: 10/10/19 at [address] Amended: Links added.
[2019-10-11] MEDS ORDERED: VANCOMYCIN LEVEL IV ONE (04:30)
== END 2019-10-10 15:25 | DRG 100 ==
LOC: ER 20:56 → ED HOLD 23:21 → ORTHO 4S 10-06 02:06
PROVIDERS: ADMIT Internal Medicine; ATTEND Internal Medicine
PROC: B32T1ZZ Computerized Tomography (CT Scan) of Left Pulmonary Artery using Low Osmolar Contrast (ICD-10-PCS; 2019-10-05)
PROC: B3201ZZ Computerized Tomography (CT Scan) of Thoracic Aorta using Low Osmolar Contrast (ICD-10-PCS; 2019-10-05)
PROC: B32S1ZZ Computerized Tomography (CT Scan) of Right Pulmonary Artery using Low Osmolar Contrast (ICD-10-PCS; 2019-10-05)
PROC: 3E02340 Introduction of Influenza Vaccine into Muscle, Percutaneous Approach (ICD-10-PCS; principal; 2019-10-10)
DX: G40.909 Epilepsy, unspecified, not intractable, without status epilepticus (principal); J69.0 Pneumonitis due to inhalation of food and vomit; S32.011A Stable burst fracture of first lumbar vertebra, initial encounter for closed fracture; B37.0 Candidal stomatitis; E66.01 Morbid (severe) obesity due to excess calories; Z96.641 Presence of right artificial hip joint; I50.9 Heart failure, unspecified; J20.9 Acute bronchitis, unspecified; E78.00 Pure hypercholesterolemia, unspecified; Z60.2 Problems related to living alone; W18.39XA Other fall on same level, initial encounter; I11.0 Hypertensive heart disease with heart failure; G89.29 Other chronic pain; I25.10 Atherosclerotic heart disease of native coronary artery without angina pectoris; R29.6 Repeated falls; Z95.828 Presence of other vascular implants and grafts; Z23 Encounter for immunization; Z88.8 Allergy status to other drugs, medicaments and biological substances; Z79.899 Other long term (current) drug therapy; Z68.31 Body mass index [BMI] 31.0-31.9, adult; Y93.89 Activity, other specified; Y92.89 Other specified places as the place of occurrence of the external cause; Y99.8 Other external cause status
CPT/HCPCS: 36415; 70450; 71045; 71275; 72170; 74176; 76937; 80048; 80053; 80185; 80202; 81001; 83605; 83690; 83735; 84145; 84484; 85025; 85379; 85610; 85730; 87040; 87070; 87081; 92508; 92616; 93005; 93306; 94640; 94667; 94760; 96365; 97110; 97116; 97162; 97530; 99285; G0378; J0696; J1940; J2405; J3370; J7030; Q2037; Q9967

== ENCOUNTER 2019-11-15 05:53 | Observation (INO) | payer MEDICARE, MEDICAID ==
[~2019-11-15] VITALS: Ht 182.9 cm; Wt 117.0 kg
[~2019-11-15 05:53] MED LIST changes: +ACET-2119 PO; +APIX2.5T PO; +CALC-1197 PO; -CEPH500C5 PO; +CHOL500061; +CYAN100097 PO; +DOCU100C41 PO; +FERR325T28 PO; +FEXO-62 PO; +FLO0.4C PO; +FLUT16SP26 NAS; +FURO20TA4 PO; +LAMO25TA5 PO; +LORA10TA7 PO; +MAGN400C PO; +METH1TAB32 PO; +MULT-933 PO; -ONDA4TAB6 PO; +PHEN100C12 PO; +POTA20TA19 PO; +QUET100T33 PO; +RISP2TAB3 PO; +SIMV-42 PO; +TOP100T PO
[2019-11-15] MEDS ORDERED: LORazepam 2 mg/ml vial IV STA (05:57)
[2019-11-15] MEDS ORDERED: levetiracetam inj 1,000 MG in normal saline 100ml IV soln 90 ML IV ONE (06:00)
[2019-11-15] MEDS ORDERED: LORazepam 2 mg/ml vial IV ONE (06:00)
--- NOTE | 2019-11-15 06:17 | NUR ---
Just got back from CT, pt monitored with spox and ekg and tolerated procedure well. [facility] with a gaze to the right and up with his head turned that way as well.
[2019-11-15 06:53] LABS: CLARITY,URINE CLEAR (Clear); COLOR,URINE YELLOW (Yellow); GLUCOSE, URINE NEGATIVE (Neg); KETONES,URINE NEGATIVE (Neg); LEUKOCYTE ESTERASE ,URINE NEGATIVE (Neg); NITRITES, URINE NEGATIVE (Neg); OCCULT BLOOD,URINE TRACE-INTACT (Neg); PH,URINE 5.5 (4.8-8.0); PROTEIN,URINE TRACE mg/dl (Neg); UROBILINOGEN,URINE 0.2 E.U/dL (0.2-1.0)
[2019-11-15 06:59] LABS: UA COLLECTION TYPE CLN CATCH MIDSTREAM
[2019-11-15 07:00] LABS: BACTERIA,URINE NONE SEEN /HPF (Neg); MUCUS STRANDS NONE SEEN /LPF (Neg); RBC,URINE 0-2 /HPF (0-2); SQUAMOUS EPITHELIAL CELL,UR NONE SEEN /LPF (FEW); WBC,URINE 0-4 /HPF (0-4)
[2019-11-15 07:10] LABS: URINE AMPHETAMINE SCREEN NEGATIVE (Neg); URINE BARBITUATE SCREEN NEGATIVE (Neg); URINE BENZODIAZEPINES SCREEN POSITIVE (Neg); URINE CANNABINOID SCREEN NEGATIVE (Neg); URINE COCAINE SCREEN NEGATIVE (Neg); URINE METHADONE SCREEN NEGATIVE (Neg); URINE OPIATE SCREEN NEGATIVE (Neg); URINE PHENCYCLIDINE SCREEN NEGATIVE (Neg)
--- NOTE | 2019-11-15 08:00 | NUR ---
NEURO CONSULT DONE. PT IS UNABLE TO VERBALIZE BUT WILL OPEN HIS EYES TO PAINFUL STIMULI. PT ABLE TO MOVE ALL EXTREMITIES. PUPILS ARE 3 AND REACTIVE. PT STILL HAS A GAZE TO THE RIGHT SIDE. NO SEIZURE ACTIVITY NOTED AT THIS TIME
[2019-11-15 08:11] LABS: BASOPHILS % (AUTO) 0.2 % (0-1); EOSINOPHILS % (AUTO) 0.2 % (0-6); HEMATOCRIT 40.6 % (42.0-52.0); HEMOGLOBIN 13.8 g/dl (14.0-17.9); LYMPHOCYTES # (AUTO) 0.9 X10'3 (1.1-4.8); LYMPHOCYTES % (AUTO) 8.9 % (21-51); MEAN CORPUSCULAR HEMOGLOBIN 33.2 PG (27.0-31.0); MEAN CORPUSCULAR VOLUME 97.7 FL (78-98); MEAN PLATELET VOLUME 7.3 FL (7.4-10.4); MONOCYTES # (AUTO) 0.9 X10'3 (0-0.9); MONOCYTES % (AUTO) 8.5 % (2-12); NEUTROPHILS # (AUTO) 8.6 X10'3 (1.8-7.7); NEUTROPHILS % (AUTO) 82.2 % (42-75); PLATELET COUNT 254 X10'3 (140-440); RED BLOOD COUNT 4.16 X10'6 (4.70-6.10); RED CELL DISTRIBUTION WIDTH 14.7 % (11.5-14.5); WHITE BLOOD COUNT 10.5 X10'3 (4.5-11.0)
[2019-11-15 08:28] LABS: ALANINE AMINOTRANSFERASE 56 U/L (12-78); ALBUMIN 2.8 G/DL (3.4-5.0); ALBUMIN/GLOBULIN RATIO 0.5 (1.1-1.5); ALKALINE PHOSPHATASE 134 IU/L (46-116); ANION GAP 11 (8-16); ASPARTATE AMINO TRANSFERASE 31 U/L (10-37); BILIRUBIN,TOTAL 0.2 MG/DL (0.1-1.0); BLOOD UREA NITROGEN 19 MG/DL (7-18); BUN/CREATININE RATIO 13.9 (5.4-32.0); CALCIUM 9.2 MG/DL (8.5-10.1); CHLORIDE 106 MMOL/L (99-107); CREATININE 1.37 MG/DL (0.60-1.10); GLUCOSE 117 MG/DL (70-104); POTASSIUM 3.8 MMOL/L (3.5-5.1); SODIUM 144 MMOL/L (135-145); TOTAL PROTEIN 8.4 G/DL (6.4-8.2); eGFR 51 ML/MIN
[2019-11-15 08:30] LABS: PARTIAL THROMBOPLASTIN TIME 23 SECONDS (22-32)
[2019-11-15 08:33] LABS: PHENYTOIN (DILANTIN) 9.3 UG/ML (10.0-20.0); TROPONIN I 0.08 NG/ML (0.0-0.05)
[2019-11-15 08:38] LABS: ETHANOL < 0.010 GM/DL (0.0-0.010)
[2019-11-15] MEDS ORDERED: potassium CL 10mEq/100ml bag 100 ML IV PRN ×2 (09:10)
[2019-11-15] MEDS ORDERED: magnesium Cl slow-release 64mg tablet PO PRN (09:10)
[2019-11-15] MEDS ORDERED: potassium Cl 20 mEq SR tablet PO PRN ×2 (09:10)
[2019-11-15] MEDS ORDERED: HYDROcodone/acetaminophen 5mg/325mg tablet PO PRN (09:10)
[2019-11-15] MEDS ORDERED: magnesium 2GM in 50ml NS 50 ML IV PRN (09:10)
[2019-11-15] MEDS ORDERED: ondansetron/PF 4mg/2ml inj IV PRN (09:10)
[2019-11-15] MEDS ORDERED: acetaminophen 325mg tablet PO PRN ×2 (09:10)
[2019-11-15] MEDS ORDERED: magnesium 4gm in 100ml NS 100 ML IV PRN (09:10)
[2019-11-15] MEDS ORDERED: morphine 2 MG/ML inj. syringe IV PRN (09:10)
[2019-11-15] MEDS: normal saline 1000ml 1,000 ML IV SCH (09:41)
[2019-11-15] MEDS ORDERED: LORA-269 PO (10:06)
[2019-11-15] MEDS: phenytoin 50mg chewable tablet PO SCH ×2 (10:10→21:41)
[2019-11-15 13:00] VITALS: BP 133/71
--- NOTE | 2019-11-15 13:00 | NUR ---
Patient in room ORTHO 4016. I have received report from AYAKA CROWDER and had the opportunity to ask questions and assume patient care.
[2019-11-15] MEDS ORDERED: docusate sod 100mg capsule PO PRN (16:20)
[2019-11-15] MEDS ORDERED: phenytoin sod ER 100mg capsule PO SCH (16:20)
[2019-11-15 18:00] VITALS: BP 157/74
--- NOTE | 2019-11-15 18:10 | NUR ---
Problems reprioritized. Patient report given, questions answered & plan of care reviewed with CHRISTOPH CROWDER.
[2019-11-15] MEDS ORDERED: heparin, porcine 5000 units/ml vial SQ SCH (20:00)
[2019-11-15] MEDS ORDERED: topiramate 100mg tablet PO SCH (20:00)
[2019-11-15] MEDS ORDERED: lamoTRIgine 25mg tablet PO SCH (20:00)
[2019-11-15] MEDS: K and/or MAG REPLACEMENT MC SCH (20:00)
[2019-11-15] MEDS ORDERED: temazepam 15mg capsule PO PRN (21:00)
[2019-11-15] MEDS ORDERED: quetiapine 100mg tablet PO SCH ×2 (21:00)
[2019-11-15] MEDS ORDERED: tamsulosin 0.4mg capsule PO SCH (21:00)
[2019-11-15] MEDS ORDERED: atorvastatin 10mg tablet PO SCH (21:00)
[2019-11-15] MEDS: apixaban 2.5mg tablet PO SCH (21:32)
[2019-11-15] MEDS: docusate sod 100mg capsule PO SCH (21:32)
[2019-11-15] MEDS: lamoTRIgine 100mg tablet PO SCH (21:33)
[2019-11-15] MEDS: risperiDONE 2mg tablet PO SCH (21:33)
[2019-11-15] MEDS: magnesium oxide 400mg tablet PO SCH (21:33)
[2019-11-15] MEDS: topiramate 100mg tablet PO SCH (21:35)
[2019-11-15 22:00] VITALS: BP 133/64
[2019-11-16 02:00] VITALS: BP 128/68
[2019-11-16 05:00] VITALS: BP 129/63
[2019-11-16 06:49] LABS: BASOPHILS % (AUTO) 0.4 % (0-1); EOSINOPHILS # (AUTO) 0.1 X10'3 (0-0.9); EOSINOPHILS % (AUTO) 2.1 % (0-6); HEMATOCRIT 37.1 % (42.0-52.0); HEMOGLOBIN 12.7 g/dl (14.0-17.9); LYMPHOCYTES % (AUTO) 28.6 % (21-51); MEAN CORPUSCULAR HGB CONC 34.2 g/dL (33.0-36.5); MEAN CORPUSCULAR VOLUME 96.6 FL (78-98); MEAN PLATELET VOLUME 7.1 FL (7.4-10.4); MONOCYTES # (AUTO) 0.7 X10'3 (0-0.9); MONOCYTES % (AUTO) 9.8 % (2-12); NEUTROPHILS # (AUTO) 4.1 X10'3 (1.8-7.7); NEUTROPHILS % (AUTO) 59.1 % (42-75); PLATELET COUNT 246 X10'3 (140-440); RED BLOOD COUNT 3.85 X10'6 (4.70-6.10); RED CELL DISTRIBUTION WIDTH 14.6 % (11.5-14.5)
[2019-11-16] MEDS: normal saline 1000ml 1,000 ML IV SCH (06:50)
[2019-11-16 07:17] LABS: ALANINE AMINOTRANSFERASE 47 U/L (12-78); ALBUMIN 2.5 G/DL (3.4-5.0); ALBUMIN/GLOBULIN RATIO 0.5 (1.1-1.5); ALKALINE PHOSPHATASE 128 IU/L (46-116); ANION GAP 10 (8-16); ASPARTATE AMINO TRANSFERASE 25 U/L (10-37); BILIRUBIN,TOTAL 0.3 MG/DL (0.1-1.0); BLOOD UREA NITROGEN 17 MG/DL (7-18); BUN/CREATININE RATIO 16.2 (5.4-32.0); CALCIUM 8.4 MG/DL (8.5-10.1); CHLORIDE 109 MMOL/L (99-107); CREATININE 1.05 MG/DL (0.60-1.10); GLUCOSE 90 MG/DL (70-104); POTASSIUM 3.6 MMOL/L (3.5-5.1); SODIUM 145 MMOL/L (135-145); TOTAL CARBON DIOXIDE 25.7 MMOL/L (24-32); TOTAL PROTEIN 7.4 G/DL (6.4-8.2); eGFR 69 ML/MIN
[2019-11-16] MEDS ORDERED: loratadine 10mg tablet PO SCH (08:00)
[2019-11-16] MEDS: K and/or MAG REPLACEMENT MC SCH (08:00)
[2019-11-16] MEDS ORDERED: ferrous sulfate 325mg tablet PO SCH (08:00)
[2019-11-16] MEDS ORDERED: furosemide 40mg tablet PO SCH (08:00)
[2019-11-16] MEDS: phenytoin 50mg chewable tablet PO SCH ×2 (08:12→12:25)
[2019-11-16] MEDS: topiramate 100mg tablet PO SCH (08:12)
[2019-11-16] MEDS: magnesium oxide 400mg tablet PO SCH (08:13)
[2019-11-16] MEDS: apixaban 2.5mg tablet PO SCH (08:13)
[2019-11-16] MEDS: docusate sod 100mg capsule PO SCH (08:13)
[2019-11-16] MEDS: lamoTRIgine 100mg tablet PO SCH (08:13)
[2019-11-16] MEDS: risperiDONE 2mg tablet PO SCH (08:14)
[2019-11-16 10:00] VITALS: BP 126/70
[2019-11-16 12:20] VITALS: BP 130/74
--- NOTE | 2019-11-16 14:57 | NUR ---
Problems reprioritized. Patient report given, questions answered & plan of care reviewed with Crystal from [facility].
--- NOTE | 2019-11-16 16:32 | NUR ---
Patient stable for discharge. No belongings with patient. Report called to Felipe Medina. Accompanied by Pavithra Ramos.
== END 2019-11-16 15:55 ==
LOC: ER 05:53 → ED HOLD 09:06 → INTOOBSV 09:06 → EDBEDREQ 11:14 → ORTHO 4S 13:00
PROVIDERS: ADMIT Internal Medicine; ATTEND Internal Medicine
DX: G40.909 Epilepsy, unspecified, not intractable, without status epilepticus (principal); R41.82 Altered mental status, unspecified; I11.0 Hypertensive heart disease with heart failure; I50.9 Heart failure, unspecified; G89.29 Other chronic pain; E66.01 Morbid (severe) obesity due to excess calories; R79.89 Other specified abnormal findings of blood chemistry; E78.00 Pure hypercholesterolemia, unspecified; Z86.59 Personal history of other mental and behavioral disorders; Z91.81 History of falling; Z87.01 Personal history of pneumonia (recurrent); Z79.899 Other long term (current) drug therapy; Z88.8 Allergy status to other drugs, medicaments and biological substances; Z68.35 Body mass index [BMI] 35.0-35.9, adult
CPT/HCPCS: 36415; 70450; 70544; 70551; 71045; 80053; 80185; 80305; 80320; 81001; 83735; 84484; 85025; 85610; 85730; 87081; 93005; 96361; 96365; 96375; 97110; 97116; 97162; 97530; 99284; G0378; J1953; J2060; J7030

== ENCOUNTER 2020-09-14 08:19 | Emergency (ER) | payer MEDICARE, MEDICAID ==
[~2020-09-14] VITALS: Ht 180.3 cm; Wt 111.4 kg
[~2020-09-14 08:19] MED LIST changes: -CALC-1197 PO; +CALC-1215 PO; -CHOL500061; -FEXO-62 PO; +LORA-269 PO; -METH1TAB32 PO; -RISP2TAB3 PO; +RISP2TAB85 PO
[2020-09-14 09:58] LABS: BASOPHILS % (AUTO) 0.4 % (0-1); EOSINOPHILS # (AUTO) 0.1 X10'3 (0-0.9); EOSINOPHILS % (AUTO) 1.7 % (0-6); HEMATOCRIT 39.4 % (42.0-52.0); HEMOGLOBIN 13.2 g/dl (14.0-17.9); LYMPHOCYTES # (AUTO) 2.3 X10'3 (1.1-4.8); LYMPHOCYTES % (AUTO) 31.8 % (21-51); MEAN CORPUSCULAR HEMOGLOBIN 33.6 PG (27.0-31.0); MEAN CORPUSCULAR HGB CONC 33.4 g/dL (33.0-36.5); MEAN CORPUSCULAR VOLUME 100.6 FL (78-98); MEAN PLATELET VOLUME 6.7 FL (7.4-10.4); MONOCYTES # (AUTO) 0.7 X10'3 (0-0.9); MONOCYTES % (AUTO) 10.1 % (2-12); PLATELET COUNT 250 X10'3 (140-440); RED BLOOD COUNT 3.92 X10'6 (4.70-6.10); RED CELL DISTRIBUTION WIDTH 14.8 % (11.5-14.5); WHITE BLOOD COUNT 7.1 X10'3 (4.5-11.0)
--- NOTE | 2020-09-14 10:14 | NUR ---
Pt unsteady with ambulation, noted tachypnea, RR to 30's. SpO2 maintained in 90's t/o. Unable to urinate, PA notified.
[2020-09-14 10:16] LABS: ALANINE AMINOTRANSFERASE 23 U/L (12-78); ALBUMIN 2.4 G/DL (3.4-5.0); ALBUMIN/GLOBULIN RATIO 0.4 (1.1-1.5); ALKALINE PHOSPHATASE 82 IU/L (46-116); ANION GAP 7 (8-16); ASPARTATE AMINO TRANSFERASE 12 U/L (10-37); BILIRUBIN,TOTAL 0.2 MG/DL (0.1-1.0); BLOOD UREA NITROGEN 9 MG/DL (7-18); BUN/CREATININE RATIO 9.1 (5.4-32.0); CALCIUM 8.4 MG/DL (8.5-10.1); CHLORIDE 106 MMOL/L (99-107); CREATININE 0.99 MG/DL (0.60-1.10); GLUCOSE 94 MG/DL (70-104); POTASSIUM 3.8 MMOL/L (3.5-5.1); SODIUM 140 MMOL/L (135-145); TOTAL CARBON DIOXIDE 27.2 MMOL/L (24-32); TOTAL PROTEIN 7.8 G/DL (6.4-8.2); eGFR 74 ML/MIN
--- NOTE | 2020-09-14 12:00 | NUR ---
CALLED [facility] ON [phone] SPOKE TO PABLO STEEL CRANE OPERATOR OF THE FACILITY PER HER SHE WILL SEND THE TRANSPORTTAION TO TAKE PT IF DIVER HAS N'T CLOCKED OUT FOR LUNCH IF NOT THEN IT WILL BE 30 MINS MORE WAIT.
--- NOTE | 2020-09-14 13:31 | NUR ---
Called [facility] for transport status. Per Jeniffer, yard truck driver left about 10 minutes ago.
--- NOTE | 2020-09-14 13:31 | NUR ---
Pt gave verbal consent to update his brother Eliazar on his status, which was done.
[2020-09-14 14:07] VITALS: BP 145/65
== END 2020-09-14 14:08 | disposition home or self-care (01) ==
LOC: ER 08:19
DX: R55 Syncope and collapse (principal); R60.9 Edema, unspecified; I11.0 Hypertensive heart disease with heart failure; I50.9 Heart failure, unspecified; E78.00 Pure hypercholesterolemia, unspecified; G89.29 Other chronic pain; Z88.8 Allergy status to other drugs, medicaments and biological substances; Z79.899 Other long term (current) drug therapy
CPT/HCPCS: 36415; 80053; 82948; 85025; 93005; 99285

== ENCOUNTER 2020-11-07 01:42 | Emergency (ER) | payer MEDICARE, MEDICAID ==
[~2020-11-07] VITALS: Ht 180.3 cm; Wt 107.7 kg
[~2020-11-07 01:42] MED LIST changes: -ACET-2119 PO; -APIX2.5T PO; -CALC-1215 PO; +CALC600T15 PO; +CHOL500050 PO; -CYAN100097 PO; +DOCU-267 PO; -DOCU100C41 PO; +FERR324T PO; -FERR325T28 PO; -FLUT16SP26 NAS; -FURO20TA4 PO; +FURO40TA4 PO; +LAMO200T10 PO; -LAMO25TA5 PO; -LORA-269 PO; +LORA-657 PO; -LORA10TA7 PO; -MAGN400C PO; +MAGN400T52 PO; +METH1TAB32 PO; -MULT-933 PO; +PANT40TA54 PO; -PHEN100C12 PO; +PHEN50TA2 PO; -QUET100T33 PO; +RIVA20TA PO
[2020-11-07 03:03] LABS: BASOPHILS % (AUTO) 0.3 % (0-1); EOSINOPHILS # (AUTO) 0.2 X10'3 (0-0.9); HEMATOCRIT 39.5 % (42.0-52.0); HEMOGLOBIN 13.3 g/dl (14.0-17.9); LYMPHOCYTES # (AUTO) 2.5 X10'3 (1.1-4.8); LYMPHOCYTES % (AUTO) 28.4 % (21-51); MEAN CORPUSCULAR HEMOGLOBIN 33.7 PG (27.0-31.0); MEAN CORPUSCULAR HGB CONC 33.7 g/dL (33.0-36.5); MONOCYTES % (AUTO) 10.8 % (2-12); NEUTROPHILS # (AUTO) 5.2 X10'3 (1.8-7.7); NEUTROPHILS % (AUTO) 58.5 % (42-75); PLATELET COUNT 284 X10'3 (140-440); RED BLOOD COUNT 3.95 X10'6 (4.70-6.10); RED CELL DISTRIBUTION WIDTH 14.5 % (11.5-14.5); WHITE BLOOD COUNT 8.8 X10'3 (4.5-11.0)
[2020-11-07 03:14] LABS: ALANINE AMINOTRANSFERASE 33 U/L (12-78); ALBUMIN 2.6 G/DL (3.4-5.0); ALBUMIN/GLOBULIN RATIO 0.5 (1.1-1.5); ALKALINE PHOSPHATASE 108 IU/L (46-116); ANION GAP 8 (8-16); ASPARTATE AMINO TRANSFERASE 20 U/L (10-37); BILIRUBIN,TOTAL 0.3 MG/DL (0.1-1.0); BLOOD UREA NITROGEN 11 MG/DL (7-18); BUN/CREATININE RATIO 10.3 (5.4-32.0); CALCIUM 8.6 MG/DL (8.5-10.1); CHLORIDE 101 MMOL/L (99-107); CREATININE 1.07 MG/DL (0.60-1.10); GLUCOSE 97 MG/DL (70-104); POTASSIUM 4.1 MMOL/L (3.5-5.1); SODIUM 135 MMOL/L (135-145); TOTAL CARBON DIOXIDE 26.3 MMOL/L (24-32); eGFR 68 ML/MIN
[2020-11-07 03:50] VITALS: BP 127/89
== END 2020-11-07 07:30 | disposition home or self-care (01) ==
LOC: ER 01:43
DX: S62.307A Unspecified fracture of fifth metacarpal bone, left hand, initial encounter for closed fracture (principal); G40.909 Epilepsy, unspecified, not intractable, without status epilepticus; I50.9 Heart failure, unspecified; I11.0 Hypertensive heart disease with heart failure; E78.00 Pure hypercholesterolemia, unspecified; G89.29 Other chronic pain; Z60.9 Problem related to social environment, unspecified; Z88.8 Allergy status to other drugs, medicaments and biological substances; Z79.899 Other long term (current) drug therapy; X58.XXXA Exposure to other specified factors, initial encounter; Y93.89 Activity, other specified; Y92.89 Other specified places as the place of occurrence of the external cause; Y99.8 Other external cause status
CPT/HCPCS: 29130; 36415; 71045; 73140; 80053; 83735; 83880; 84484; 85025; 93005; 99284; 99285

== ENCOUNTER 2021-04-20 12:41 | Inpatient (IN) | payer MEDICARE, MEDICAID ==
[~2021-04-20] VITALS: Ht 180.3 cm; Wt 112.0 kg
[~2021-04-20 12:41] MED LIST changes: -CALC600T15 PO; +CALC600T35 PO
[2021-04-20 13:30] VITALS: BP 137/71
[2021-04-20] MEDS ORDERED: magnesium hydroxide 30ml (MOM) UD suspension PO PRN (14:00)
[2021-04-20] MEDS ORDERED: acetaminophen 325mg tablet PO PRN (14:00)
[2021-04-20] MEDS ORDERED: ondansetron/PF 4mg/2ml inj IV PRN (14:00)
[2021-04-20] MEDS ORDERED: mag hydrox/Alum hydrox/simeth 30ml oral suspension PO PRN (14:00)
[2021-04-20] MEDS: normal saline 1000ml 1,000 ML IV SCH (14:54)
[2021-04-20 14:56] LABS: BASOPHILS % (AUTO) 0.5 % (0-1); EOSINOPHILS # (AUTO) 0.1 X10'3 (0-0.9); EOSINOPHILS % (AUTO) 1.2 % (0-6); HEMATOCRIT 41.5 % (42.0-52.0); LYMPHOCYTES # (AUTO) 2.3 X10'3 (1.1-4.8); LYMPHOCYTES % (AUTO) 26.3 % (21-51); MEAN CORPUSCULAR HEMOGLOBIN 33.8 PG (27.0-31.0); MEAN CORPUSCULAR HGB CONC 33.7 g/dL (33.0-36.5); MEAN CORPUSCULAR VOLUME 100.2 FL (78-98); MEAN PLATELET VOLUME 6.9 FL (7.4-10.4); MONOCYTES # (AUTO) 0.8 X10'3 (0-0.9); MONOCYTES % (AUTO) 9.3 % (2-12); NEUTROPHILS # (AUTO) 5.5 X10'3 (1.8-7.7); NEUTROPHILS % (AUTO) 62.7 % (42-75); PLATELET COUNT 265 X10'3 (140-440); RED BLOOD COUNT 4.15 X10'6 (4.70-6.10); RED CELL DISTRIBUTION WIDTH 14.7 % (11.5-14.5); WHITE BLOOD COUNT 8.7 X10'3 (4.5-11.0)
[2021-04-20 14:59] LABS: ALBUMIN 2.6 G/DL (3.4-5.0); ANION GAP 8 (8-16); BLOOD UREA NITROGEN 12 MG/DL (7-18); BUN/CREATININE RATIO 13.2 (5.4-32.0); CALCIUM 8.6 MG/DL (8.5-10.1); CHLORIDE 103 MMOL/L (99-107); CREATININE 0.91 MG/DL (0.60-1.10); GLUCOSE 96 MG/DL (70-104); POTASSIUM 3.9 MMOL/L (3.5-5.1); SODIUM 138 MMOL/L (135-145); TOTAL CARBON DIOXIDE 27.1 MMOL/L (24-32); eGFR 82 ML/MIN
[2021-04-20] MEDS: clindamycin 600mg/D5W 50ml 50 ML IV SCH ×2 (15:43→19:41)
[2021-04-20] MEDS ORDERED: ringers solution, lacted 1,000 ML IV ONE (16:40)
[2021-04-20 18:00] VITALS: BP 145/64
--- NOTE | 2021-04-20 18:26 | NUR ---
Problems reprioritized. Patient report given, questions answered & plan of care reviewed with Patito CROWDER.
[2021-04-21] VITALS (18 sets, daily range): BP systolic 117–141; BP diastolic 61–76
[2021-04-21] MEDS: clindamycin 600mg/D5W 50ml 50 ML IV SCH ×4 (02:44→20:35)
--- NOTE | 2021-04-21 06:23 | NUR ---
Problems reprioritized. Patient report given, questions answered & plan of care reviewed with LAKESHA Resendiz and LAKESHA Newman.
--- NOTE | 2021-04-21 06:53 | NUR ---
Patient in room [facility] 345. I have received report from LAKESHA Caputo and had the opportunity to ask questions and assume patient care.
[2021-04-21 07:37] LABS: BASOPHILS % (AUTO) 0.2 % (0-1); EOSINOPHILS # (AUTO) 0.1 X10'3 (0-0.9); HEMATOCRIT 39.7 % (42.0-52.0); HEMOGLOBIN 13.4 g/dl (14.0-17.9); LYMPHOCYTES # (AUTO) 2.3 X10'3 (1.1-4.8); LYMPHOCYTES % (AUTO) 26.7 % (21-51); MEAN CORPUSCULAR HEMOGLOBIN 33.8 PG (27.0-31.0); MEAN CORPUSCULAR HGB CONC 33.8 g/dL (33.0-36.5); MEAN CORPUSCULAR VOLUME 100.2 FL (78-98); MONOCYTES # (AUTO) 0.9 X10'3 (0-0.9); MONOCYTES % (AUTO) 10.9 % (2-12); NEUTROPHILS # (AUTO) 5.2 X10'3 (1.8-7.7); NEUTROPHILS % (AUTO) 61.2 % (42-75); PLATELET COUNT 265 X10'3 (140-440); RED BLOOD COUNT 3.96 X10'6 (4.70-6.10); RED CELL DISTRIBUTION WIDTH 15.3 % (11.5-14.5); WHITE BLOOD COUNT 8.4 X10'3 (4.5-11.0)
[2021-04-21 07:56] LABS: ALBUMIN 2.4 G/DL (3.4-5.0); ANION GAP 11 (8-16); BLOOD UREA NITROGEN 16 MG/DL (7-18); BUN/CREATININE RATIO 18.4 (5.4-32.0); CALCIUM 8.3 MG/DL (8.5-10.1); CHLORIDE 105 MMOL/L (99-107); CREATININE 0.87 MG/DL (0.60-1.10); GLUCOSE 92 MG/DL (70-104); POTASSIUM 3.8 MMOL/L (3.5-5.1); SODIUM 139 MMOL/L (135-145); TOTAL CARBON DIOXIDE 23.3 MMOL/L (24-32); eGFR 86 ML/MIN
[2021-04-21] MEDS ORDERED: LEVE500T PO (08:12)
[2021-04-21] MEDS: topiramate 100mg tablet PO SCH ×3 (09:37→20:35)
[2021-04-21] MEDS: pantoprazole 40mg Tablet.DR PO SCH (09:37)
[2021-04-21] MEDS: furosemide 40mg tablet PO SCH (09:37)
[2021-04-21] MEDS: cholecalciferol (vitamin D3) 1,000 unit (25mcg) tablet PO SCH (09:37)
[2021-04-21] MEDS: potassium Cl 20 mEq SR tablet PO SCH ×2 (09:37→20:35)
[2021-04-21] MEDS: docusate sod 100mg capsule PO SCH (09:37)
[2021-04-21] MEDS: magnesium oxide 400mg tablet PO SCH ×2 (09:38→20:35)
[2021-04-21] MEDS: risperiDONE 2mg tablet PO SCH ×2 (09:38→20:35)
[2021-04-21] MEDS: lamoTRIgine 100mg tablet PO SCH ×2 (09:39→20:35)
[2021-04-21] MEDS: phenytoin 50mg chewable tablet PO SCH ×3 (09:39→20:49)
[2021-04-21] MEDS: calcium carbonate 500mg chew tablet PO SCH (09:40)
[2021-04-21] MEDS: loratadine 10mg tablet PO SCH (09:42)
[2021-04-21] MEDS: atorvastatin 10mg tablet PO SCH (09:43)
[2021-04-21] MEDS: methenamine hippurate 1gm tablet PO SCH ×2 (09:50→20:35)
[2021-04-21] MEDS: ferrous gluconate 324mg tablet PO SCH ×2 (09:56→20:35)
--- NOTE | 2021-04-21 13:37 | NUR ---
Problems reprioritized. Patient report given, questions answered & plan of care reviewed with LAKESHA Chi.
--- NOTE | 2021-04-21 13:38 | NUR ---
Pt to OR for I&D
--- NOTE | 2021-04-21 13:56 | NUR ---
PATIENT REPORT CALLED TO [facility], PATIENT WAS TAKEN TO OR. NO GENERAL CONSENT WAS FOUND ON THE PATIENT AT TIME OF CALL. ATTEMPTED TO CALL DR. PINK BUT MD NOT AVAILABLE AND MAILBOX WAS FULL WILL NOTIFY RECOVERY THAT WAS UNABLE TO ACQUIRE ORDER FOR GENERAL CONSENT.
[2021-04-21] MEDS ORDERED: morphine 4 MG/ML inj SYRINge IV PRN (14:00)
[2021-04-21] MEDS ORDERED: ondansetron/PF 4mg/2ml inj IV PRN (14:00)
[2021-04-21] MEDS ORDERED: fentaNYL/PF 50MCG/1 ML 2ML syringe IV PRN ×2 (14:00)
[2021-04-21] MEDS ORDERED: labetalol 20mg/4ml (5mg/ml) syringe IV PRN (14:00)
[2021-04-21] MEDS ORDERED: ringers solution, lacted 1,000 ML IV SCH (14:00)
[2021-04-21] MEDS ORDERED: enalaprilat dihydrate 2.5mg/2ml vial IV PRN (14:00)
[2021-04-21] MEDS ORDERED: morphine 2 MG/ML inj. syringe IV PRN (14:00)
[2021-04-21] MEDS ORDERED: MIDAZolam 1 MG/ML 5ML VIAL ONE (14:46)
--- NOTE | 2021-04-21 15:33 | NUR ---
Received from OR via SURGICAL BED, accompanied by Anesthesiologist ALIN and report given by Anesthesiolgist. PATIENT WITH 22G PIV IN RIGHT THUMB. VSS. DENIES PAIN. RIGHT THIGH DRESSING IS CDI. CHICA AND ABD ALL CDI CURRENTLY. + DP DISTAL TO DRESSING. SCDS ON, 10L MASK ON WITH 100% SATURATIONS. Addendum: 04/21/21 at 1543 by Rob Santana RN, RN Amended: Links added.
--- NOTE | 2021-04-21 16:09 | NUR ---
Patient in room [facility] 345. I have received report from LAKESHA Rivas and had the opportunity to ask questions and assume patient care. VSS. Minimal estimated blood loss, dressing to right high with abd pad and kerlix. States no drainage and positive pulses for doralis pedis
--- NOTE | 2021-04-21 16:23 | NUR ---
PATIENT HAS MET ALL CRITERIA FOR TRANSFER TO THE SURGICAL/JOSE/PCU/ORTHO/ICU FLOOR. VSS. DRESSINGS INTACT. BED LOW, CALL LIGHT PRESENT AND 2 RAILS UP. RN PRESENT TO ACCEPT CARE OF PATIENT AND REPORT HAS BEEN CALLED. ALL QUESTIONS ANSWERED TO ACCEPTING RN. RN LISBETH PRESENT TO ACCEPT CARE. INSPECTED DRESSING ALL CDI. VSS. RN LISBETH ASSUMING CARE OF PATIENT. Addendum: 04/21/21 at 1629 by Rob Ng - LAKESHA CROWDER Amended: Links added.
[2021-04-21] MEDS: normal saline 1000ml 1,000 ML IV SCH (16:36)
--- NOTE | 2021-04-21 16:41 | NUR ---
Pt arrived to floor. Call light given to pt. VSS 97.5-69-16-98% on 2L-140/67
--- NOTE | 2021-04-21 18:24 | NUR ---
Patient in room [facility] 345. I have received report from Martín CROWDER and Paty CROWDER and had the opportunity to ask questions and assume patient care.
--- NOTE | 2021-04-21 18:30 | NUR ---
Problems reprioritized. Patient report given, questions answered & plan of care reviewed with LAKESHA Acosta.
[2021-04-21] MEDS: tamsulosin 0.4mg capsule PO SCH (20:35)
[2021-04-21] MEDS: lactobacillus rhamnosus 10,000 MMU CELLS/CAPSULE PO SCH (20:35)
[2021-04-21] MEDS: levetiracetam 250mg tablet PO SCH (20:36)
[2021-04-22 00:05] VITALS: BP 132/74
[2021-04-22] MEDS: clindamycin 600mg/D5W 50ml 50 ML IV SCH ×4 (03:26→22:33)
[2021-04-22 03:50] VITALS: BP 122/82
--- NOTE | 2021-04-22 06:30 | NUR ---
Patient in room [facility] 345. I have received report from LAKESHA Acosta and had the opportunity to ask questions and assume patient care.
--- NOTE | 2021-04-22 06:35 | NUR ---
Problems reprioritized. Patient report given, questions answered & plan of care reviewed with Cyndi CROWDER.
[2021-04-22 07:00] VITALS: BP 148/67
[2021-04-22] MEDS: cholecalciferol (vitamin D3) 1,000 unit (25mcg) tablet PO SCH (07:48)
[2021-04-22] MEDS: lamoTRIgine 100mg tablet PO SCH ×2 (07:49→22:13)
[2021-04-22] MEDS: lactobacillus rhamnosus 10,000 MMU CELLS/CAPSULE PO SCH ×2 (07:49→22:11)
[2021-04-22] MEDS: magnesium oxide 400mg tablet PO SCH ×3 (07:49→23:03)
[2021-04-22] MEDS: levetiracetam 250mg tablet PO SCH ×2 (07:49→22:12)
[2021-04-22] MEDS: atorvastatin 10mg tablet PO SCH (07:49)
[2021-04-22] MEDS: loratadine 10mg tablet PO SCH (07:49)
[2021-04-22] MEDS: topiramate 100mg tablet PO SCH ×3 (07:49→22:13)
[2021-04-22] MEDS: pantoprazole 40mg Tablet.DR PO SCH (07:49)
[2021-04-22] MEDS: potassium Cl 20 mEq SR tablet PO SCH ×2 (07:49→20:00)
[2021-04-22] MEDS: methenamine hippurate 1gm tablet PO SCH (07:49)
[2021-04-22] MEDS: furosemide 40mg tablet PO SCH (07:49)
[2021-04-22] MEDS: ferrous gluconate 324mg tablet PO SCH ×2 (07:49→22:12)
[2021-04-22] MEDS: risperiDONE 2mg tablet PO SCH ×2 (07:49→22:13)
[2021-04-22] MEDS: docusate sod 100mg capsule PO SCH (07:50)
[2021-04-22] MEDS: phenytoin 50mg chewable tablet PO SCH ×3 (07:50→22:24)
[2021-04-22] MEDS: calcium carbonate 500mg chew tablet PO SCH (08:00)
[2021-04-22 08:10] LABS: ALBUMIN 2.7 G/DL (3.4-5.0); ANION GAP 14 (8-16); BLOOD UREA NITROGEN 15 MG/DL (7-18); CALCIUM 8.2 MG/DL (8.5-10.1); CHLORIDE 105 MMOL/L (99-107); CREATININE 0.88 MG/DL (0.60-1.10); GLUCOSE 89 MG/DL (70-104); POTASSIUM 4.7 MMOL/L (3.5-5.1); SODIUM 139 MMOL/L (135-145); TOTAL CARBON DIOXIDE 20.3 MMOL/L (24-32); eGFR 85 ML/MIN
[2021-04-22 10:01] LABS: BASOPHILS % (AUTO) 0.3 % (0-1); EOSINOPHILS # (AUTO) 0.1 X10'3 (0-0.9); EOSINOPHILS % (AUTO) 1.5 % (0-6); HEMATOCRIT 37.1 % (42.0-52.0); HEMOGLOBIN 12.7 g/dl (14.0-17.9); LYMPHOCYTES % (AUTO) 24.5 % (21-51); MEAN CORPUSCULAR HEMOGLOBIN 33.9 PG (27.0-31.0); MEAN CORPUSCULAR HGB CONC 34.3 g/dL (33.0-36.5); MEAN CORPUSCULAR VOLUME 98.6 FL (78-98); MEAN PLATELET VOLUME 6.3 FL (7.4-10.4); MONOCYTES # (AUTO) 0.8 X10'3 (0-0.9); MONOCYTES % (AUTO) 9.8 % (2-12); NEUTROPHILS # (AUTO) 5.2 X10'3 (1.8-7.7); NEUTROPHILS % (AUTO) 63.9 % (42-75); PLATELET COUNT 252 X10'3 (140-440); RED BLOOD COUNT 3.76 X10'6 (4.70-6.10); RED CELL DISTRIBUTION WIDTH 14.9 % (11.5-14.5); WHITE BLOOD COUNT 8.1 X10'3 (4.5-11.0)
--- NOTE | 2021-04-22 13:27 | NUR ---
Dr Jeff rounded and stated the hospitalist will prescribe abx if needed, per pending cultures. Dr. Larsen notified.
[2021-04-22] MEDS: normal saline 1000ml 1,000 ML IV SCH (14:53)
--- NOTE | 2021-04-22 18:45 | NUR ---
Pt reports last seizure was 2 days ago. when photo of head was being done he was on the phone telling a friend he hit his head during his seizure. Wound to posterior head mor consistent with rub abrasion than pressure as PT Get indicated.
--- NOTE | 2021-04-22 18:47 | NUR ---
Problems reprioritized. Patient report given, questions answered & plan of care reviewed with LAKESHA Conrad.
--- NOTE | 2021-04-22 18:56 | NUR ---
Patient in room [facility] 345. I have received report from LAKESHA Hanna and had the opportunity to ask questions and assume patient care.
[2021-04-22 19:00] VITALS: BP 131/64
[2021-04-22] MEDS: tamsulosin 0.4mg capsule PO SCH (22:14)
[2021-04-23] VITALS: BP 142/68
[2021-04-23] MEDS: clindamycin 600mg/D5W 50ml 50 ML IV SCH ×2 (04:37→09:29)
[2021-04-23] MEDS: normal saline 1000ml 1,000 ML IV SCH (04:45)
--- NOTE | 2021-04-23 04:51 | NUR ---
Patient c/o feeling that he cannot void completely. Bladder scanned and only got 33ml in 3 scans.
[2021-04-23 06:07] LABS: BASOPHILS % (AUTO) 0.2 % (0-1); EOSINOPHILS # (AUTO) 0.2 X10'3 (0-0.9); EOSINOPHILS % (AUTO) 1.6 % (0-6); HEMATOCRIT 38.6 % (42.0-52.0); HEMOGLOBIN 12.9 g/dl (14.0-17.9); LYMPHOCYTES # (AUTO) 2.7 X10'3 (1.1-4.8); LYMPHOCYTES % (AUTO) 28.3 % (21-51); MEAN CORPUSCULAR HEMOGLOBIN 33.9 PG (27.0-31.0); MEAN CORPUSCULAR HGB CONC 33.4 g/dL (33.0-36.5); MEAN CORPUSCULAR VOLUME 101.3 FL (78-98); MEAN PLATELET VOLUME 6.8 FL (7.4-10.4); MONOCYTES % (AUTO) 10.5 % (2-12); NEUTROPHILS # (AUTO) 5.7 X10'3 (1.8-7.7); NEUTROPHILS % (AUTO) 59.4 % (42-75); PLATELET COUNT 257 X10'3 (140-440); RED BLOOD COUNT 3.81 X10'6 (4.70-6.10); RED CELL DISTRIBUTION WIDTH 14.7 % (11.5-14.5); WHITE BLOOD COUNT 9.5 X10'3 (4.5-11.0)
--- NOTE | 2021-04-23 06:11 | NUR ---
Problems reprioritized. Patient report given, questions answered & plan of care reviewed with LAKESHA Hanna.
--- NOTE | 2021-04-23 06:33 | NUR ---
Patient in room [facility] 345. I have received report from LAKESHA Conrad and had the opportunity to ask questions and assume patient care.
[2021-04-23 06:35] LABS: ALBUMIN 2.3 G/DL (3.4-5.0); ANION GAP 9 (8-16); BLOOD UREA NITROGEN 15 MG/DL (7-18); BUN/CREATININE RATIO 17.2 (5.4-32.0); CHLORIDE 106 MMOL/L (99-107); CREATININE 0.87 MG/DL (0.60-1.10); GLUCOSE 103 MG/DL (70-104); POTASSIUM 3.8 MMOL/L (3.5-5.1); SODIUM 138 MMOL/L (135-145); TOTAL CARBON DIOXIDE 23.1 MMOL/L (24-32); eGFR 86 ML/MIN
[2021-04-23 07:00] VITALS: BP 122/69
[2021-04-23] MEDS ORDERED: furosemide 40mg tablet PO SCH (08:00)
[2021-04-23] MEDS ORDERED: furosemide 20MG tablet PO SCH (08:00)
[2021-04-23] MEDS: phenytoin 50mg chewable tablet PO SCH (09:29)
[2021-04-23] MEDS: loratadine 10mg tablet PO SCH (09:30)
[2021-04-23] MEDS: atorvastatin 10mg tablet PO SCH (09:30)
[2021-04-23] MEDS: ferrous gluconate 324mg tablet PO SCH (09:30)
[2021-04-23] MEDS: magnesium oxide 400mg tablet PO SCH (09:30)
[2021-04-23] MEDS: levetiracetam 250mg tablet PO SCH (09:30)
[2021-04-23] MEDS: potassium Cl 20 mEq SR tablet PO SCH (09:30)
[2021-04-23] MEDS: lactobacillus rhamnosus 10,000 MMU CELLS/CAPSULE PO SCH (09:30)
[2021-04-23] MEDS: docusate sod 100mg capsule PO SCH (09:30)
[2021-04-23] MEDS: topiramate 100mg tablet PO SCH (09:30)
[2021-04-23] MEDS: cholecalciferol (vitamin D3) 1,000 unit (25mcg) tablet PO SCH (09:33)
[2021-04-23] MEDS: calcium carbonate 500mg chew tablet PO SCH (09:34)
[2021-04-23] MEDS: pantoprazole 40mg Tablet.DR PO SCH (09:37)
[2021-04-23] MEDS: lamoTRIgine 100mg tablet PO SCH (09:38)
[2021-04-23] MEDS: risperiDONE 2mg tablet PO SCH (09:42)
[2021-04-23 11:00] VITALS: BP 127/76
[2021-04-23] MEDS ORDERED: FURO20TA4 PO (11:47)
[2021-04-23] MEDS ORDERED: CLIN-91 PO (11:48)
== END 2021-04-23 14:03 | disposition home health service (06) | DRG 603 ==
LOC: SUR 3N 12:41 → UNDOADMIN 12:41 → SUR 3N 13:59
PROVIDERS: ADMIT Family Medicine; ATTEND Family Medicine
PROC: 0H9KXZZ Drainage of Right Lower Leg Skin, External Approach (ICD-10-PCS; principal; 2021-04-20)
DX: L03.115 Cellulitis of right lower limb (principal); E78.5 Hyperlipidemia, unspecified; G40.909 Epilepsy, unspecified, not intractable, without status epilepticus; L02.415 Cutaneous abscess of right lower limb; I11.0 Hypertensive heart disease with heart failure; I48.91 Unspecified atrial fibrillation; I50.9 Heart failure, unspecified; S81.801A Unspecified open wound, right lower leg, initial encounter; X58.XXXA Exposure to other specified factors, initial encounter; K21.9 Gastro-esophageal reflux disease without esophagitis; N40.0 Benign prostatic hyperplasia without lower urinary tract symptoms; R29.6 Repeated falls; Z88.8 Allergy status to other drugs, medicaments and biological substances; Y93.89 Activity, other specified; Y92.89 Other specified places as the place of occurrence of the external cause; Y99.8 Other external cause status
CPT/HCPCS: 36415; 80048; 82948; 85025; 85610; 85730; 87070; 87075; 87081; 93005; 97161; 97530; 99214; A6253; A6266; A6446; A6449; A7000; G0378; J2250; J3490; J7030

== ENCOUNTER 2021-06-19 18:32 | Emergency (ER) | payer MEDICARE, MEDICAID ==
[~2021-06-19] VITALS: Ht 180.3 cm; Wt 102.0 kg
[~2021-06-19 18:32] MED LIST changes: +DOCU-262 PO; -DOCU-267 PO; +FURO20TA4 PO; -FURO40TA4 PO; +LEVE500T PO; -METH1TAB32 PO
--- NOTE | 2021-06-19 20:37 | NUR ---
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
[2021-06-19] MEDS ORDERED: FURO-150 PO (20:49)
[2021-06-19] MEDS ORDERED: DOCU100C40 PO (20:50)
[2021-06-19] MEDS ORDERED: TOP100T PO (20:52)
[2021-06-19] MEDS ORDERED: METH1TAB32 PO (20:53)
[2021-06-19] MEDS ORDERED: RIVA20TA PO (20:57)
[2021-06-19] MEDS ORDERED: CALC500T11 PO (20:58)
[2021-06-19 21:29] LABS: BASOPHILS % (AUTO) 0.3 % (0-1); EOSINOPHILS # (AUTO) 0.1 X10'3 (0-0.9); EOSINOPHILS % (AUTO) 1.8 % (0-6); HEMATOCRIT 38.8 % (42.0-52.0); HEMOGLOBIN 12.9 g/dl (14.0-17.9); LYMPHOCYTES # (AUTO) 2.2 X10'3 (1.1-4.8); LYMPHOCYTES % (AUTO) 26.5 % (21-51); MEAN CORPUSCULAR HEMOGLOBIN 33.8 PG (27.0-31.0); MEAN CORPUSCULAR HGB CONC 33.2 g/dL (33.0-36.5); MEAN CORPUSCULAR VOLUME 101.8 FL (78-98); MEAN PLATELET VOLUME 6.9 FL (7.4-10.4); MONOCYTES # (AUTO) 0.9 X10'3 (0-0.9); MONOCYTES % (AUTO) 11.1 % (2-12); NEUTROPHILS % (AUTO) 60.3 % (42-75); PLATELET COUNT 278 X10'3 (140-440); RED BLOOD COUNT 3.81 X10'6 (4.70-6.10); RED CELL DISTRIBUTION WIDTH 14.6 % (11.5-14.5); WHITE BLOOD COUNT 8.3 X10'3 (4.5-11.0)
[2021-06-19 21:38] LABS: ALANINE AMINOTRANSFERASE 10 U/L (12-78); ALBUMIN 2.4 G/DL (3.4-5.0); ALBUMIN/GLOBULIN RATIO 0.4 (1.1-1.5); ALKALINE PHOSPHATASE 93 IU/L (46-116); ANION GAP 9 (8-16); ASPARTATE AMINO TRANSFERASE 14 U/L (10-37); BILIRUBIN,TOTAL 0.2 MG/DL (0.1-1.0); BLOOD UREA NITROGEN 11 MG/DL (7-18); BUN/CREATININE RATIO 11.7 (5.4-32.0); CHLORIDE 101 MMOL/L (99-107); CREATININE 0.94 MG/DL (0.60-1.10); GLUCOSE 103 MG/DL (70-104); POTASSIUM 4.4 MMOL/L (3.5-5.1); SODIUM 137 MMOL/L (135-145); TOTAL CARBON DIOXIDE 26.6 MMOL/L (24-32); eGFR 79 ML/MIN
[2021-06-19] MEDS ORDERED: furosemide 20MG tablet PO ONE (23:15)
[2021-06-20 01:44] VITALS: BP 138/82
== END 2021-06-20 01:46 | disposition home or self-care (01) ==
LOC: ER 18:33
DX: R22.41 Localized swelling, mass and lump, right lower limb (principal); M79.661 Pain in right lower leg; I11.0 Hypertensive heart disease with heart failure; I50.9 Heart failure, unspecified; E78.00 Pure hypercholesterolemia, unspecified; G89.29 Other chronic pain; Z88.8 Allergy status to other drugs, medicaments and biological substances; Z79.899 Other long term (current) drug therapy
CPT/HCPCS: 36415; 80053; 83880; 85025; 93971; 99284

== ENCOUNTER 2022-07-20 06:41 | Emergency (ER) | payer MEDICARE, MEDICAID ==
[~2022-07-20] VITALS: Ht 180.3 cm; Wt 118.2 kg
[~2022-07-20 06:41] MED LIST changes: +CALC1CAP21 PO; -CALC600T35 PO; -DOCU-262 PO; +DOCU100C40 PO; +FERR-39 PO; -FERR324T PO; +FURO-150 PO; -FURO20TA4 PO; +LACT1CAP26 PO; +METO-467 PO; +OMEP20TA43 PO; -PANT40TA54 PO; -PHEN50TA2 PO; +PHEN50TA4 PO; +POTA-207 PO; -POTA20TA19 PO; -RIVA20TA PO; +WARF-55 PO
[2022-07-20 07:28] LABS: BASOPHILS % (AUTO) 0.1 % (0-1); EOSINOPHILS # (AUTO) 0.2 X10'3 (0-0.9); EOSINOPHILS % (AUTO) 2.1 % (0-6); HEMATOCRIT 38.1 % (42.0-52.0); HEMOGLOBIN 12.9 g/dl (14.0-17.9); LYMPHOCYTES # (AUTO) 1.6 X10'3 (1.1-4.8); LYMPHOCYTES % (AUTO) 17.5 % (21-51); MEAN CORPUSCULAR HEMOGLOBIN 33.7 PG (27.0-31.0); MEAN CORPUSCULAR VOLUME 99.1 FL (78-98); MEAN PLATELET VOLUME 6.4 FL (7.4-10.4); MONOCYTES # (AUTO) 0.9 X10'3 (0-0.9); MONOCYTES % (AUTO) 9.9 % (2-12); NEUTROPHILS # (AUTO) 6.3 X10'3 (1.8-7.7); NEUTROPHILS % (AUTO) 70.4 % (42-75); PLATELET COUNT 231 X10'3 (140-440); RED BLOOD COUNT 3.84 X10'6 (4.70-6.10); WHITE BLOOD COUNT 8.9 X10'3 (4.5-11.0)
[2022-07-20 07:41] LABS: ALANINE AMINOTRANSFERASE 20 U/L (12-78); ALBUMIN 2.3 G/DL (3.4-5.0); ALBUMIN/GLOBULIN RATIO 0.5 (1.1-1.5); ALKALINE PHOSPHATASE 103 IU/L (46-116); ANION GAP 6 (8-16); ASPARTATE AMINO TRANSFERASE 14 U/L (10-37); BILIRUBIN,TOTAL 0.3 MG/DL (0.1-1.0); BLOOD UREA NITROGEN 15 MG/DL (7-18); BUN/CREATININE RATIO 16.3 (5.4-32.0); CALCIUM 7.9 MG/DL (8.5-10.1); CHLORIDE 105 MMOL/L (99-107); CREATININE 0.92 MG/DL (0.60-1.10); GLUCOSE 96 MG/DL (70-104); POTASSIUM 3.9 MMOL/L (3.5-5.1); SODIUM 136 MMOL/L (135-145); TOTAL CARBON DIOXIDE 25.5 MMOL/L (24-32); TOTAL PROTEIN 6.9 G/DL (6.4-8.2); eGFR 80 ML/MIN
[2022-07-20 07:43] LABS: CLARITY,URINE CLEAR (Clear); COLOR,URINE YELLOW (Yellow); GLUCOSE, URINE NEGATIVE (Neg); KETONES,URINE NEGATIVE (Neg); LEUKOCYTE ESTERASE ,URINE NEGATIVE (Neg); NITRITES, URINE NEGATIVE (Neg); OCCULT BLOOD,URINE TRACE-INTACT (Neg); PH,URINE 6.5 (4.8-8.0); PROTEIN,URINE NEGATIVE (Neg); UROBILINOGEN,URINE 0.2 E.U/dL (0.2-1.0)
[2022-07-20 07:44] LABS: MAGNESIUM 1.8 MG/DL (1.5-2.4)
[2022-07-20 07:45] LABS: APTT 46 SECONDS (22-32)
[2022-07-20 08:08] LABS: UA COLLECTION TYPE STRAIGHT CATH
[2022-07-20 08:12] LABS: WBC,URINE 0-4 /HPF (0-4)
[2022-07-20 08:13] LABS: BACTERIA,URINE NONE SEEN /HPF (Neg); MUCUS STRANDS NONE SEEN /LPF (Neg); SQUAMOUS EPITHELIAL CELL,UR NONE SEEN /LPF (FEW)
[2022-07-20 08:36] LABS: CREATINE KINASE 46 U/L (39-308)
[2022-07-20 08:38] LABS: PHENYTOIN (DILANTIN) 10.7 UG/ML (10.0-20.0)
[2022-07-20] MEDS ORDERED: calcium gluconate inj. 2 GM in normal saline 100ml IV soln 100 ML IV ONE (09:00)
[2022-07-20] MEDS ORDERED: CALCIUM GLUC 1gm/50ml NACL,iso 50 ML IV ONE (09:05)
--- NOTE | 2022-07-20 12:11 | NUR ---
LINE SERVICE TECHNICIAN AT BEDSIDE AT THIS TIME WITH DR ARROYO.
[2022-07-20] MEDS ORDERED: FOSF3PAC PO (16:22)
[2022-07-20] MEDS ORDERED: acetaminophen 325mg tablet PO ONE (17:50)
--- NOTE | 2022-07-20 18:00 | NUR ---
DR TURNER AT BEDSIDE WITH DR MCGHEE TO ASSESS PATIENT AT THIS TIME.
--- NOTE | 2022-07-20 18:26 | NUR ---
[facility] CALLED TO ADVISE THAT PT'S FAMILY MEMBERS ARE OUT OF TOWN, THEY WON'T BE ABLE TO PROVIDE TRANSPORTATION.
[2022-07-20 19:41] VITALS: BP 179/84
[2022-07-21] MEDS ORDERED: CEPH-585 PO (11:40)
[2022-07-21] MEDS ORDERED: ACET-75 PO (12:04)
[2022-07-22 19:12] LABS: LAMOTRIGINE, SERUM 2.4 ug/mL (2.0-20.0); LEVETIRACETAM, S 6.8 ug/mL (10.0-40.0)
== END 2022-07-20 19:49 | disposition home or self-care (01) ==
LOC: ER 06:42
DX: M48.56XA Collapsed vertebra, not elsewhere classified, lumbar region, initial encounter for fracture (principal); R56.9 Unspecified convulsions; I11.9 Hypertensive heart disease without heart failure; E78.00 Pure hypercholesterolemia, unspecified; G89.29 Other chronic pain; Z88.8 Allergy status to other drugs, medicaments and biological substances; Z79.899 Other long term (current) drug therapy; Z79.1 Long term (current) use of non-steroidal anti-inflammatories (NSAID); Z79.2 Long term (current) use of antibiotics
CPT/HCPCS: 36415; 70450; 71045; 71250; 72125; 72190; 73610; 73630; 74176; 80053; 80177; 80185; 81001; 82542; 82550; 82948; 83605; 83735; 84484; 85025; 85610; 85730; 93005; 93971; 93978; 96365; 99285; C1758; J0610; A4340; A4349

== ENCOUNTER 2022-07-21 09:24 | Emergency (ER) | payer MEDICARE, MEDICAID ==
[~2022-07-21] VITALS: Ht 180.3 cm; Wt 230.0 kg
[~2022-07-21 09:24] MED LIST changes: +FOSF3PAC PO
[2022-07-21] MEDS ORDERED: LIDOcaine 1% (10mg/ml)w/preservative inj. 20ml MDV SQ ONE (10:25)
[2022-07-21] MEDS ORDERED: TETanus/Pertussis (Acell)/Diphther VAC/PF (Tdap-Adult) 0.5ml syringe IMVAC ONE (10:25)
[2022-07-21] MEDS ORDERED: LIDOcaine 1% 30ml preserv. free vial SQ ONE (10:40)
[2022-07-21] MEDS ORDERED: cephalexin 500mg capsule PO ONE (11:35)
[2022-07-21] MEDS ORDERED: acetaminophen 325mg tablet PO ONE (11:37)
[2022-07-21] MEDS ORDERED: CEPH-585 PO (11:40)
[2022-07-21] MEDS ORDERED: ACET-75 PO (12:04)
[2022-07-21 14:30] VITALS: BP 153/76
--- NOTE | 2022-07-21 15:21 | NUR ---
Request for patient to be placed for [facility], [facility] has accepted, patient agreeable to transfer, orders sent, notified primary nurse, waiting for transport time
--- NOTE | 2022-07-21 15:25 | NUR ---
transport time to [facility] 1800, notified primary nurse
--- NOTE | 2022-07-21 15:28 | NUR ---
Pt to be transferred to [facility] by [facility] with ETA 1800 per social sciences department chair LAKESHA Acevedo.
--- NOTE | 2022-07-21 15:55 | NUR ---
Received VO [place] 5/325 1 tab PO x [address] Mak
--- NOTE | 2022-07-21 16:09 | NUR ---
Pt given yogurts and fluid per pt request.
[2022-07-21] MEDS ORDERED: HYDROcodone/acetaminophen 5mg/325mg tablet PO ONE (16:10)
== END 2022-07-21 19:03 ==
LOC: ER 09:24
DX: S91.115A Laceration without foreign body of left lesser toe(s) without damage to nail, initial encounter (principal); M25.511 Pain in right shoulder; M19.011 Primary osteoarthritis, right shoulder; X58.XXXA Exposure to other specified factors, initial encounter; Y93.89 Activity, other specified; Y92.89 Other specified places as the place of occurrence of the external cause; Y99.8 Other external cause status
CPT/HCPCS: 12001; 73030; 90471; 90715; 99284; A6222; A6258; A6449

== ENCOUNTER 2022-09-05 01:06 | Inpatient (IN) | payer MEDICARE, MEDICAID ==
[~2022-09-05] VITALS: Ht 180.3 cm; Wt 100.0 kg
[2022-09-05 02:59] LABS: BASOPHILS % (AUTO) 0.3 % (0-1); EOSINOPHILS # (AUTO) 0.1 X10'3 (0-0.9); EOSINOPHILS % (AUTO) 1.5 % (0-6); HEMATOCRIT 41.6 % (42.0-52.0); HEMOGLOBIN 13.7 g/dl (14.0-17.9); LYMPHOCYTES # (AUTO) 1.5 X10'3 (1.1-4.8); LYMPHOCYTES % (AUTO) 22.3 % (21-51); MEAN CORPUSCULAR HEMOGLOBIN 33.2 PG (27.0-31.0); MEAN CORPUSCULAR HGB CONC 32.9 g/dL (33.0-36.5); MEAN CORPUSCULAR VOLUME 100.9 FL (78-98); MONOCYTES # (AUTO) 0.8 X10'3 (0-0.9); NEUTROPHILS # (AUTO) 4.5 X10'3 (1.8-7.7); NEUTROPHILS % (AUTO) 64.9 % (42-75); PLATELET COUNT 293 X10'3 (140-440); RED BLOOD COUNT 4.12 X10'6 (4.70-6.10); RED CELL DISTRIBUTION WIDTH 16.6 % (11.5-14.5); WHITE BLOOD COUNT 6.9 X10'3 (4.5-11.0)
[2022-09-05 03:08] LABS: ALANINE AMINOTRANSFERASE 39 U/L (12-78); ALBUMIN 2.7 G/DL (3.4-5.0); ALBUMIN/GLOBULIN RATIO 0.6 (1.1-1.5); ALKALINE PHOSPHATASE 108 IU/L (46-116); ANION GAP 9 (8-16); ASPARTATE AMINO TRANSFERASE 21 U/L (10-37); BILIRUBIN,TOTAL 0.3 MG/DL (0.1-1.0); BLOOD UREA NITROGEN 12 MG/DL (7-18); CALCIUM 9.2 MG/DL (8.5-10.1); CHLORIDE 101 MMOL/L (99-107); GLUCOSE 96 MG/DL (70-104); LIPASE < 50 U/L (73-393); POTASSIUM 4.2 MMOL/L (3.5-5.1); SODIUM 135 MMOL/L (135-145); TOTAL CARBON DIOXIDE 25.4 MMOL/L (24-32); TOTAL PROTEIN 7.6 G/DL (6.4-8.2); eGFR 73 ML/MIN
[2022-09-05] MEDS ORDERED: iohexol 300mg/ml 100ml inj. ONE (03:15)
[2022-09-05 04:00] LABS: CLARITY,URINE CLEAR (Clear); COLOR,URINE YELLOW (Yellow); GLUCOSE, URINE NEGATIVE (Neg); KETONES,URINE NEGATIVE (Neg); LEUKOCYTE ESTERASE ,URINE NEGATIVE (Neg); NITRITES, URINE NEGATIVE (Neg); OCCULT BLOOD,URINE NEGATIVE (Neg); PH,URINE 6.5 (4.8-8.0); PROTEIN,URINE NEGATIVE (Neg); UROBILINOGEN,URINE 0.2 E.U/dL (0.2-1.0)
[2022-09-05 04:04] LABS: UA COLLECTION TYPE NON-SPECIFIED
[2022-09-05] MEDS ORDERED: acetaminophen 650mg rectal suppository RC PRN (05:35)
[2022-09-05] MEDS ORDERED: HYDROmorphone inj. 0.5 MG/0.5 ML DISP.SYRIN IV PRN (05:35)
[2022-09-05] MEDS ORDERED: magnesium hydroxide 30ml (MOM) UD suspension PO PRN (05:35)
[2022-09-05] MEDS ORDERED: HYDROcodone/acetaminophen 10/325mg tab PO PRN (05:35)
[2022-09-05] MEDS ORDERED: HYDROcodone/acetaminophen 5mg/325mg tablet PO PRN (05:35)
[2022-09-05] MEDS ORDERED: ondansetron 4mg rapidly disintigrating tab PO PRN (05:35)
[2022-09-05] MEDS ORDERED: acetaminophen 325mg tablet PO PRN ×2 (05:35)
[2022-09-05] MEDS ORDERED: diphenhydrAMINE 50 mg/ml inj IV PRN (05:35)
[2022-09-05] MEDS ORDERED: morphine 2 MG/ML inj. syringe IV PRN ×2 (05:35)
[2022-09-05] MEDS ORDERED: ondansetron/PF 4mg/2ml inj IV PRN (05:35)
[2022-09-05] MEDS ORDERED: mag hydrox/Alum hydrox/simeth 30ml oral suspension PO PRN (05:35)
[2022-09-05] MEDS ORDERED: diphenhydrAMINE 25mg capsule PO PRN (05:35)
[2022-09-05] MEDS ORDERED: bisacodyl 10mg suppository rectal RC PRN (05:35)
[2022-09-05] MEDS: normal saline 1000ml 1,000 ML IV SCH ×3 (05:45→22:19)
[2022-09-05 06:48] LABS: APTT 46 SECONDS (22-32)
[2022-09-05 06:57] LABS: MAGNESIUM 2.4 MG/DL (1.5-2.4)
[2022-09-05 07:19] LABS: PHOSPHORUS 3.2 MG/DL (2.3-4.5)
[2022-09-05 07:27] LABS: HEMOGLOBIN A1C 4.7 % (4.5-6.2)
[2022-09-05] MEDS: docusate sod 100mg capsule PO SCH ×2 (08:00→20:00)
[2022-09-05] MEDS: K and/or MAG REPLACEMENT MC SCH ×2 (08:00→20:07)
--- NOTE | 2022-09-05 11:11 | NUR ---
SPOKE TO RN AT [facility]. PT HAS RESIDED THERE FOR 4 YEARS. PT JUST RETURNNED RO THEM 4 DAYS AGO AFTER BEING AT [facility] FOR REHAB PER T 7 FRACTURE. PT IS ABLE TO AMBULATE W/ STAND BY ASSIST AND USES AN " [facility]" TO TRANSFER. LAST NIGHT PT FELL OUT OF HIS WHEELCHAIR AND WAS ASSISSTED BACK TO BED, PT FELL OUT OF BED AT SOME POINT LATER AND WAS AT THAT TIME SENT TO ER PER COMPLAINTS OF PAIN. P IS ON COUMADIN.
[2022-09-05] MEDS ORDERED: NEOM1OIN8 TOP (15:16)
[2022-09-05] MEDS ORDERED: WARF3TAB56 PO (15:16)
[2022-09-05] MEDS ORDERED: LACTC PO (15:16)
[2022-09-05] MEDS ORDERED: WARF4TAB69 PO (15:16)
[2022-09-05] MEDS ORDERED: MAGN400O6 PO (15:16)
[2022-09-05] MEDS ORDERED: CIPR250T4 PO (15:16)
[2022-09-05] MEDS ORDERED: ACET-1015 PO (15:16)
[2022-09-05] MEDS ORDERED: BISA-155 PO (15:16)
--- NOTE | 2022-09-05 20:43 | NUR ---
Patient in room ED 11. I have received report from SHAYE HURST RN and had the opportunity to ask questions and assume patient care. Addendum: 09/05/22 at 2043 by Nayeli Morrison RN Amended: Links added.
[2022-09-05 20:59] VITALS: BP 142/73
[2022-09-05] MEDS ORDERED: temazepam 15mg capsule PO PRN (21:00)
[2022-09-06] MEDS ORDERED: acetaminophen 325mg tablet PO PRN (00:30)
[2022-09-06] MEDS ORDERED: neomycin sulfate/bacitracin zinc/polymixin B UD packet TP PRN (00:30)
--- NOTE | 2022-09-06 02:56 | NUR ---
Student documentation: I have reviewed and agree with all interventions, assessments performed and documented by RICHAR BR[facility]A [facility] RN STUDENT. Addendum: 09/06/22 at 0257 by Nayeli Morrison RN Amended: Links added.
[2022-09-06 06:00] VITALS: BP 135/64
--- NOTE | 2022-09-06 06:22 | NUR ---
Problems reprioritized. Patient report given, questions answered & plan of care reviewed with LAKESHA GOODE. Addendum: 09/06/22 at 0625 by Nayeli Morrison RN Amended: Links added.
[2022-09-06 06:55] LABS: BASOPHILS % (AUTO) 0.4 % (0-1); EOSINOPHILS # (AUTO) 0.2 X10'3 (0-0.9); EOSINOPHILS % (AUTO) 3.1 % (0-6); HEMATOCRIT 38.8 % (42.0-52.0); HEMOGLOBIN 13.2 g/dl (14.0-17.9); LYMPHOCYTES # (AUTO) 2.6 X10'3 (1.1-4.8); LYMPHOCYTES % (AUTO) 33.2 % (21-51); MEAN CORPUSCULAR HEMOGLOBIN 34.5 PG (27.0-31.0); MEAN CORPUSCULAR HGB CONC 34.1 g/dL (33.0-36.5); MEAN CORPUSCULAR VOLUME 101.1 FL (78-98); MEAN PLATELET VOLUME 7.2 FL (7.4-10.4); MONOCYTES # (AUTO) 0.8 X10'3 (0-0.9); MONOCYTES % (AUTO) 9.6 % (2-12); NEUTROPHILS # (AUTO) 4.2 X10'3 (1.8-7.7); NEUTROPHILS % (AUTO) 53.7 % (42-75); PLATELET COUNT 280 X10'3 (140-440); RED BLOOD COUNT 3.84 X10'6 (4.70-6.10); RED CELL DISTRIBUTION WIDTH 16.3 % (11.5-14.5); WHITE BLOOD COUNT 7.8 X10'3 (4.5-11.0)
[2022-09-06 07:11] LABS: ALANINE AMINOTRANSFERASE 26 U/L (12-78); ALBUMIN 2.4 G/DL (3.4-5.0); ALBUMIN/GLOBULIN RATIO 0.5 (1.1-1.5); ALKALINE PHOSPHATASE 107 IU/L (46-116); ANION GAP 10 (8-16); ASPARTATE AMINO TRANSFERASE 22 U/L (10-37); BILIRUBIN,TOTAL 0.3 MG/DL (0.1-1.0); BLOOD UREA NITROGEN 10 MG/DL (7-18); BUN/CREATININE RATIO 11.4 (5.4-32.0); CHLORIDE 103 MMOL/L (99-107); CHOLESTEROL 172 MG/DL (0-200); CREATININE 0.88 MG/DL (0.60-1.10); GLUCOSE 76 MG/DL (70-104); HDL CHOLESTEROL 43 MG/DL (35-60); LDL CHOLESTEROL 99 MG/DL (50-100); POTASSIUM 3.9 MMOL/L (3.5-5.1); SODIUM 138 MMOL/L (135-145); TOTAL CARBON DIOXIDE 24.7 MMOL/L (24-32); TOTAL PROTEIN 7.1 G/DL (6.4-8.2); TRIGLYCERIDES 185 MG/DL (20-135); eGFR 85 ML/MIN
[2022-09-06] MEDS: docusate sod 100mg capsule PO SCH ×2 (08:00→21:57)
[2022-09-06] MEDS: K and/or MAG REPLACEMENT MC SCH ×2 (08:00→20:00)
[2022-09-06] MEDS: metoprolol tartrate 50mg tablet PO SCH ×2 (09:35→21:55)
[2022-09-06] MEDS: levetiracetam 250mg tablet PO SCH ×2 (09:35→21:55)
[2022-09-06] MEDS: lamoTRIgine 100mg tablet PO SCH ×2 (09:35→21:54)
[2022-09-06] MEDS: pantoprazole 40mg Tablet.DR PO SCH (09:35)
[2022-09-06] MEDS: ferrous sulfate 325mg tablet PO SCH (09:35)
[2022-09-06] MEDS: risperiDONE 2mg tablet PO SCH ×2 (09:36→21:54)
[2022-09-06] MEDS: phenytoin 50mg chewable tablet PO SCH ×3 (09:36→21:54)
[2022-09-06] MEDS: topiramate 100mg tablet PO SCH ×3 (09:37→21:55)
[2022-09-06] MEDS: normal saline 1000ml 1,000 ML IV SCH ×2 (09:42→21:57)
[2022-09-06 11:00] VITALS: BP 142/70
--- NOTE | 2022-09-06 12:08 | NUR ---
SPOKE WITH ODIN FROM [facility] AND GAVE HER UPDATES.
[2022-09-06 18:00] VITALS: BP 119/46
--- NOTE | 2022-09-06 18:47 | NUR ---
Problems reprioritized. Patient report given, questions answered & plan of care reviewed with COLEMAN CROWDER.
[2022-09-06] MEDS: tamsulosin 0.4mg capsule PO SCH (21:54)
[2022-09-06] MEDS: atorvastatin 10mg tablet PO SCH (21:55)
[2022-09-06 22:00] VITALS: BP 142/74
[2022-09-07 06:00] VITALS: BP 127/70
[2022-09-07 06:20] LABS: BASOPHILS % (AUTO) 0.3 % (0-1); EOSINOPHILS # (AUTO) 0.2 X10'3 (0-0.9); EOSINOPHILS % (AUTO) 3.2 % (0-6); HEMATOCRIT 38.9 % (42.0-52.0); HEMOGLOBIN 12.9 g/dl (14.0-17.9); LYMPHOCYTES # (AUTO) 2.7 X10'3 (1.1-4.8); LYMPHOCYTES % (AUTO) 35.6 % (21-51); MEAN CORPUSCULAR HEMOGLOBIN 33.7 PG (27.0-31.0); MEAN CORPUSCULAR HGB CONC 33.3 g/dL (33.0-36.5); MEAN CORPUSCULAR VOLUME 101.3 FL (78-98); MEAN PLATELET VOLUME 6.8 FL (7.4-10.4); MONOCYTES # (AUTO) 0.8 X10'3 (0-0.9); MONOCYTES % (AUTO) 10.2 % (2-12); NEUTROPHILS # (AUTO) 3.9 X10'3 (1.8-7.7); NEUTROPHILS % (AUTO) 50.7 % (42-75); PLATELET COUNT 263 X10'3 (140-440); RED BLOOD COUNT 3.84 X10'6 (4.70-6.10); RED CELL DISTRIBUTION WIDTH 16.5 % (11.5-14.5); WHITE BLOOD COUNT 7.7 X10'3 (4.5-11.0)
[2022-09-07 06:21] LABS: ALANINE AMINOTRANSFERASE 23 U/L (12-78); ALBUMIN 2.1 G/DL (3.4-5.0); ALBUMIN/GLOBULIN RATIO 0.5 (1.1-1.5); ALKALINE PHOSPHATASE 90 IU/L (46-116); ANION GAP 9 (8-16); ASPARTATE AMINO TRANSFERASE 21 U/L (10-37); BILIRUBIN,TOTAL 0.2 MG/DL (0.1-1.0); BLOOD UREA NITROGEN 11 MG/DL (7-18); BUN/CREATININE RATIO 13.3 (5.4-32.0); CALCIUM 8.2 MG/DL (8.5-10.1); CHLORIDE 104 MMOL/L (99-107); CREATININE 0.83 MG/DL (0.60-1.10); GLUCOSE 94 MG/DL (70-104); POTASSIUM 3.6 MMOL/L (3.5-5.1); SODIUM 135 MMOL/L (135-145); TOTAL CARBON DIOXIDE 22.5 MMOL/L (24-32); TOTAL PROTEIN 6.7 G/DL (6.4-8.2); eGFR > 90 ML/MIN
--- NOTE | 2022-09-07 06:44 | NUR ---
Problems reprioritized. Patient report given, questions answered & plan of care reviewed with LAKESHA RAMON.
--- NOTE | 2022-09-07 06:45 | NUR ---
Patient in room [facility] 341. I have received report from Anamaria and had the opportunity to ask questions and assume patient care.
[2022-09-07] MEDS: normal saline 1000ml 1,000 ML IV SCH ×3 (07:35→19:07)
[2022-09-07] MEDS: K and/or MAG REPLACEMENT MC SCH ×2 (08:00→20:00)
[2022-09-07] MEDS: docusate sod 100mg capsule PO SCH ×2 (08:00→20:00)
[2022-09-07] MEDS: pantoprazole 40mg Tablet.DR PO SCH (10:08)
[2022-09-07] MEDS: levetiracetam 250mg tablet PO SCH ×2 (10:08→20:47)
[2022-09-07] MEDS: topiramate 100mg tablet PO SCH ×3 (10:08→20:46)
[2022-09-07] MEDS: phenytoin 50mg chewable tablet PO SCH ×3 (10:09→20:45)
[2022-09-07] MEDS: metoprolol tartrate 50mg tablet PO SCH ×2 (10:09→20:45)
[2022-09-07] MEDS: lamoTRIgine 100mg tablet PO SCH ×2 (10:10→20:46)
[2022-09-07] MEDS: risperiDONE 2mg tablet PO SCH ×2 (10:10→20:45)
[2022-09-07] MEDS: ferrous sulfate 325mg tablet PO SCH (10:11)
[2022-09-07 11:00] VITALS: BP 115/60
[2022-09-07 18:00] VITALS: BP 130/93
--- NOTE | 2022-09-07 18:40 | NUR ---
Problems reprioritized. Patient report given, questions answered & plan of care reviewed with LAKESHA Doss.
--- NOTE | 2022-09-07 18:45 | NUR ---
Patient in room [facility] 341. I have received report from TRISTEN CROWDER and had the opportunity to ask questions and assume patient care.
[2022-09-07] MEDS: tamsulosin 0.4mg capsule PO SCH (20:45)
[2022-09-07] MEDS: atorvastatin 10mg tablet PO SCH (20:45)
[2022-09-07 22:00] VITALS: BP 129/69
[2022-09-08] MEDS: normal saline 1000ml 1,000 ML IV SCH ×2 (04:53→21:34)
[2022-09-08 06:00] VITALS: BP 147/72
--- NOTE | 2022-09-08 06:30 | NUR ---
Problems reprioritized. Patient report given, questions answered & plan of care reviewed with BRIAN CROWDER.
[2022-09-08] MEDS: K and/or MAG REPLACEMENT MC SCH ×2 (08:00→21:46)
[2022-09-08 08:56] LABS: BASOPHILS % (AUTO) 0.5 % (0-1); EOSINOPHILS # (AUTO) 0.2 X10'3 (0-0.9); EOSINOPHILS % (AUTO) 2.7 % (0-6); HEMATOCRIT 38.6 % (42.0-52.0); HEMOGLOBIN 12.8 g/dl (14.0-17.9); LYMPHOCYTES # (AUTO) 1.7 X10'3 (1.1-4.8); LYMPHOCYTES % (AUTO) 22.3 % (21-51); MEAN CORPUSCULAR HEMOGLOBIN 33.5 PG (27.0-31.0); MEAN CORPUSCULAR HGB CONC 33.1 g/dL (33.0-36.5); MEAN CORPUSCULAR VOLUME 101.4 FL (78-98); MEAN PLATELET VOLUME 6.7 FL (7.4-10.4); MONOCYTES # (AUTO) 0.7 X10'3 (0-0.9); MONOCYTES % (AUTO) 8.8 % (2-12); NEUTROPHILS # (AUTO) 4.9 X10'3 (1.8-7.7); NEUTROPHILS % (AUTO) 65.7 % (42-75); PLATELET COUNT 268 X10'3 (140-440); RED BLOOD COUNT 3.81 X10'6 (4.70-6.10); RED CELL DISTRIBUTION WIDTH 16.1 % (11.5-14.5); WHITE BLOOD COUNT 7.4 X10'3 (4.5-11.0)
[2022-09-08] MEDS: docusate sod 100mg capsule PO SCH ×2 (09:02→21:27)
[2022-09-08] MEDS: lamoTRIgine 100mg tablet PO SCH ×2 (09:03→21:28)
[2022-09-08] MEDS: levetiracetam 250mg tablet PO SCH ×2 (09:03→21:28)
[2022-09-08] MEDS: ferrous sulfate 325mg tablet PO SCH (09:03)
[2022-09-08] MEDS: phenytoin 50mg chewable tablet PO SCH ×3 (09:03→21:29)
[2022-09-08] MEDS: metoprolol tartrate 50mg tablet PO SCH ×2 (09:04→21:29)
[2022-09-08] MEDS: pantoprazole 40mg Tablet.DR PO SCH (09:04)
[2022-09-08] MEDS: topiramate 100mg tablet PO SCH ×3 (09:04→21:29)
[2022-09-08] MEDS: risperiDONE 2mg tablet PO SCH ×2 (09:04→21:29)
[2022-09-08 09:09] LABS: ALANINE AMINOTRANSFERASE 23 U/L (12-78); ALBUMIN 2.1 G/DL (3.4-5.0); ALBUMIN/GLOBULIN RATIO 0.5 (1.1-1.5); ALKALINE PHOSPHATASE 90 IU/L (46-116); ANION GAP 6 (8-16); ASPARTATE AMINO TRANSFERASE 18 U/L (10-37); BILIRUBIN,TOTAL 0.3 MG/DL (0.1-1.0); BLOOD UREA NITROGEN 7 MG/DL (7-18); CALCIUM 8.1 MG/DL (8.5-10.1); CHLORIDE 106 MMOL/L (99-107); CREATININE 0.88 MG/DL (0.60-1.10); GLUCOSE 105 MG/DL (70-104); POTASSIUM 3.4 MMOL/L (3.5-5.1); SODIUM 136 MMOL/L (135-145); TOTAL CARBON DIOXIDE 24.1 MMOL/L (24-32); TOTAL PROTEIN 6.5 G/DL (6.4-8.2); eGFR 85 ML/MIN
[2022-09-08 10:00] VITALS: BP 136/58
[2022-09-08 18:00] VITALS: BP 123/62
--- NOTE | 2022-09-08 18:30 | NUR ---
Patient in room [facility] 341. I have received report from BRIAN CROWDER and had the opportunity to ask questions and assume patient care.
[2022-09-08] MEDS: tamsulosin 0.4mg capsule PO SCH (21:29)
[2022-09-08] MEDS: atorvastatin 10mg tablet PO SCH (21:29)
[2022-09-08 22:00] VITALS: BP 139/65
--- NOTE | 2022-09-09 06:30 | NUR ---
Problems reprioritized. Patient report given, questions answered & plan of care reviewed with GUME ASHER.
[2022-09-09] MEDS: K and/or MAG REPLACEMENT MC SCH (08:00)
[2022-09-09 08:13] LABS: BASOPHILS % (AUTO) 0.4 % (0-1); EOSINOPHILS # (AUTO) 0.2 X10'3 (0-0.9); EOSINOPHILS % (AUTO) 2.1 % (0-6); HEMATOCRIT 39.8 % (42.0-52.0); HEMOGLOBIN 13.2 g/dl (14.0-17.9); LYMPHOCYTES % (AUTO) 25.3 % (21-51); MEAN CORPUSCULAR HEMOGLOBIN 33.6 PG (27.0-31.0); MEAN CORPUSCULAR HGB CONC 33.3 g/dL (33.0-36.5); MEAN CORPUSCULAR VOLUME 100.9 FL (78-98); MEAN PLATELET VOLUME 6.8 FL (7.4-10.4); MONOCYTES # (AUTO) 0.9 X10'3 (0-0.9); MONOCYTES % (AUTO) 10.9 % (2-12); NEUTROPHILS # (AUTO) 4.8 X10'3 (1.8-7.7); NEUTROPHILS % (AUTO) 61.3 % (42-75); PLATELET COUNT 277 X10'3 (140-440); RED BLOOD COUNT 3.94 X10'6 (4.70-6.10); RED CELL DISTRIBUTION WIDTH 15.9 % (11.5-14.5); WHITE BLOOD COUNT 7.9 X10'3 (4.5-11.0)
[2022-09-09 08:34] VITALS: BP_SYST 140
[2022-09-09] MEDS: docusate sod 100mg capsule PO SCH (08:34)
[2022-09-09] MEDS: metoprolol tartrate 50mg tablet PO SCH (08:34)
[2022-09-09] MEDS: ferrous sulfate 325mg tablet PO SCH (08:35)
[2022-09-09] MEDS: pantoprazole 40mg Tablet.DR PO SCH (08:35)
[2022-09-09] MEDS: risperiDONE 2mg tablet PO SCH (08:35)
[2022-09-09] MEDS: levetiracetam 250mg tablet PO SCH (08:35)
[2022-09-09] MEDS: topiramate 100mg tablet PO SCH (08:35)
[2022-09-09] MEDS: lamoTRIgine 100mg tablet PO SCH (08:35)
[2022-09-09] MEDS: phenytoin 50mg chewable tablet PO SCH (08:39)
[2022-09-09 08:42] LABS: ALANINE AMINOTRANSFERASE 19 U/L (12-78); ALBUMIN 2.2 G/DL (3.4-5.0); ALBUMIN/GLOBULIN RATIO 0.5 (1.1-1.5); ALKALINE PHOSPHATASE 98 IU/L (46-116); ANION GAP 8 (8-16); ASPARTATE AMINO TRANSFERASE 23 U/L (10-37); BILIRUBIN,TOTAL 0.3 MG/DL (0.1-1.0); BLOOD UREA NITROGEN 7 MG/DL (7-18); BUN/CREATININE RATIO 8.3 (5.4-32.0); CALCIUM 8.4 MG/DL (8.5-10.1); CHLORIDE 106 MMOL/L (99-107); CREATININE 0.84 MG/DL (0.60-1.10); GLUCOSE 100 MG/DL (70-104); POTASSIUM 3.8 MMOL/L (3.5-5.1); SODIUM 135 MMOL/L (135-145); TOTAL PROTEIN 6.8 G/DL (6.4-8.2); eGFR 89 ML/MIN
[2022-09-09] MEDS: normal saline 1000ml 1,000 ML IV SCH (09:35)
--- NOTE | 2022-09-09 10:26 | NUR ---
Report called to recieving nurse De Leon at [facility].
--- NOTE | 2022-09-09 11:45 | NUR ---
Pt picked up for transport to [facility] via transport company. VSS, pt alert and appropriate during dc. IV DC no c/o pain or discomfort during procedure, canula intact.
--- NOTE | 2022-09-16 14:09 | NUR ---
Case Management DC follow up:Patient DC to [facility].
== END 2022-09-09 11:32 | DRG 100 ==
LOC: ER 01:07 → ED HOLD 05:37 → SUR 3N 20:52
PROVIDERS: ADMIT Family Medicine; ATTEND Internal Medicine
DX: G40.909 Epilepsy, unspecified, not intractable, without status epilepticus (principal); G93.41 Metabolic encephalopathy; R29.6 Repeated falls; Z20.822 Contact with and (suspected) exposure to COVID-19; F03.90 Unspecified dementia, unspecified severity, without behavioral disturbance, psychotic disturbance, mood disturbance, and anxiety; E78.00 Pure hypercholesterolemia, unspecified; I11.0 Hypertensive heart disease with heart failure; I25.10 Atherosclerotic heart disease of native coronary artery without angina pectoris; G89.29 Other chronic pain; Z60.2 Problems related to living alone; K59.00 Constipation, unspecified; M25.551 Pain in right hip; W18.39XA Other fall on same level, initial encounter; R14.0 Abdominal distension (gaseous); M25.552 Pain in left hip; M25.561 Pain in right knee; M25.562 Pain in left knee; R26.9 Unspecified abnormalities of gait and mobility; I50.9 Heart failure, unspecified; N40.0 Benign prostatic hyperplasia without lower urinary tract symptoms; Z86.73 Personal history of transient ischemic attack (TIA), and cerebral infarction without residual deficits; I25.2 Old myocardial infarction; Z88.8 Allergy status to other drugs, medicaments and biological substances; Z86.718 Personal history of other venous thrombosis and embolism; Z79.899 Other long term (current) drug therapy; Y93.89 Activity, other specified; Y99.8 Other external cause status; E88.09 Other disorders of plasma-protein metabolism, not elsewhere classified
CPT/HCPCS: 36415; 70450; 71045; 72125; 73502; 73560; 73700; 74177; 80053; 80061; 81003; 83036; 83690; 83735; 83880; 84100; 84484; 85025; 85610; 85730; 87081; 87635; 93005; 97110; 97112; 97161; 97530; 99285; A6250; G0378; J3490; J7030; Q9967

== ENCOUNTER 2023-04-10 09:06 | Emergency (ER) | payer MEDICARE, MEDICAID ==
[~2023-04-10] VITALS: Ht 180.3 cm; Wt 121.0 kg
[~2023-04-10 09:06] MED LIST changes: +ACET-1015 PO; +BISA-155 PO; +CIPR250T4 PO; -FOSF3PAC PO; -LACT1CAP26 PO; +LACTC PO; +MAGN400O6 PO; +NEOM1OIN8 TOP; -WARF-55 PO; +WARF3TAB56 PO; +WARF4TAB69 PO
[2023-04-10 09:36] VITALS: BP 126/69
[2023-04-10] MEDS ORDERED: levetiracetam inj 1,000 MG in normal saline 100ml IV soln 100 ML IV ONE (09:38)
[2023-04-10] MEDS ORDERED: levetiracetam inj 1,000 MG in normal saline 100ml IV soln 90 ML IV SCH (09:40)
[2023-04-10 10:29] LABS: ALANINE AMINOTRANSFERASE 41 U/L (12-78); ALBUMIN 2.8 G/DL (3.4-5.0); ALBUMIN/GLOBULIN RATIO 0.5 (1.1-1.5); ALKALINE PHOSPHATASE 102 IU/L (46-116); ANION GAP 10 (8-16); ASPARTATE AMINO TRANSFERASE 27 U/L (10-37); BILIRUBIN,TOTAL 0.3 MG/DL (0.1-1.0); BLOOD UREA NITROGEN 13 MG/DL (7-18); BUN/CREATININE RATIO 12.9 (10.0-20.0); CALCIUM 8.4 MG/DL (8.5-10.1); CHLORIDE 103 MMOL/L (99-107); CREATININE 1.01 MG/DL (0.60-1.10); GLUCOSE 108 MG/DL (70-104); POTASSIUM 4.3 MMOL/L (3.5-5.1); SODIUM 136 MMOL/L (135-145); TOTAL CARBON DIOXIDE 22.9 MMOL/L (24-32); TOTAL PROTEIN 8.1 G/DL (6.4-8.2); eGFR 72 ML/MIN
--- NOTE | 2023-04-10 10:35 | NUR ---
Report given to [facility]. They said they will provide transportation. ETA 30 minutes
[2023-04-10 10:47] LABS: BASOPHILS % (AUTO) 0.3 % (0-1); EOSINOPHILS # (AUTO) 0.1 X10'3 (0-0.9); EOSINOPHILS % (AUTO) 1.2 % (0-6); HEMATOCRIT 40.8 % (42.0-52.0); HEMOGLOBIN 13.7 g/dl (14.0-17.9); LYMPHOCYTES % (AUTO) 26.2 % (21-51); MEAN CORPUSCULAR HGB CONC 33.5 g/dL (33.0-36.5); MEAN CORPUSCULAR VOLUME 98.4 FL (78-98); MEAN PLATELET VOLUME 6.9 FL (7.4-10.4); MONOCYTES # (AUTO) 0.9 X10'3 (0-0.9); MONOCYTES % (AUTO) 11.3 % (2-12); NEUTROPHILS # (AUTO) 4.7 X10'3 (1.8-7.7); PLATELET COUNT 223 X10'3 (140-440); RED BLOOD COUNT 4.15 X10'6 (4.70-6.10); RED CELL DISTRIBUTION WIDTH 14.8 % (11.5-14.5); WHITE BLOOD COUNT 7.8 X10'3 (4.5-11.0)
== END 2023-04-10 11:06 ==
LOC: ER 09:07
DX: G40.909 Epilepsy, unspecified, not intractable, without status epilepticus (principal); I11.0 Hypertensive heart disease with heart failure; I50.9 Heart failure, unspecified; E78.00 Pure hypercholesterolemia, unspecified
CPT/HCPCS: 36415; 80053; 85025; 93005; 96374; 99284; J1953; J3490

== ENCOUNTER 2023-07-26 08:46 | Emergency (ER) | payer MEDICARE, MEDICAID ==
[~2023-07-26] VITALS: Ht 180.3 cm; Wt 110.0 kg
[2023-07-26 08:55] VITALS: TEMP 97.8
[2023-07-26] MEDS ORDERED: levetiracetam inj 1,000 MG in normal saline 100ml IV soln 90 ML IV STA (08:55)
[2023-07-26] MEDS ORDERED: normal saline 1000ML IV soln IV ONE (08:55)
[2023-07-26] MEDS ORDERED: levetiracetam inj 1,000 MG in normal saline 100ml IV soln 100 ML IV STA (09:16)
[2023-07-26 09:45] LABS: BASOPHILS % (AUTO) 0.3 % (0-1); EOSINOPHILS # (AUTO) 0.2 X10'3 (0-0.9); EOSINOPHILS % (AUTO) 2.3 % (0-6); HEMATOCRIT 39.6 % (42.0-52.0); HEMOGLOBIN 13.2 g/dl (14.0-17.9); LYMPHOCYTES # (AUTO) 2.3 X10'3 (1.1-4.8); LYMPHOCYTES % (AUTO) 24.5 % (21-51); MEAN CORPUSCULAR HEMOGLOBIN 32.8 PG (27.0-31.0); MEAN CORPUSCULAR HGB CONC 33.3 g/dL (33.0-36.5); MEAN CORPUSCULAR VOLUME 98.3 FL (78-98); MEAN PLATELET VOLUME 7.1 FL (7.4-10.4); MONOCYTES # (AUTO) 0.7 X10'3 (0-0.9); MONOCYTES % (AUTO) 7.6 % (2-12); NEUTROPHILS # (AUTO) 6.1 X10'3 (1.8-7.7); NEUTROPHILS % (AUTO) 65.3 % (42-75); PLATELET COUNT 397 X10'3 (140-440); RED BLOOD COUNT 4.03 X10'6 (4.70-6.10); RED CELL DISTRIBUTION WIDTH 14.3 % (11.5-14.5); WHITE BLOOD COUNT 9.3 X10'3 (4.5-11.0)
[2023-07-26 09:54] LABS: ALANINE AMINOTRANSFERASE 85 U/L (12-78); ALBUMIN 1.9 G/DL (3.4-5.0); ALBUMIN/GLOBULIN RATIO 0.3 (1.1-1.5); ALKALINE PHOSPHATASE 91 IU/L (46-116); ANION GAP 7 (8-16); BILIRUBIN,TOTAL 0.2 MG/DL (0.1-1.0); BLOOD UREA NITROGEN 11 MG/DL (7-18); BUN/CREATININE RATIO 12.6 (10.0-20.0); CALCIUM 8.6 MG/DL (8.5-10.1); CHLORIDE 100 MMOL/L (99-107); CREATININE 0.87 MG/DL (0.60-1.10); GLUCOSE 112 MG/DL (70-104); MAGNESIUM 2.3 MG/DL (1.5-2.4); SODIUM 133 MMOL/L (135-145); TOTAL CARBON DIOXIDE 26.5 MMOL/L (24-32); TOTAL PROTEIN 8.1 G/DL (6.4-8.2); eCRCL 78 ML/MIN; eGFR 86 ML/MIN
[2023-07-26 09:59] LABS: ASPARTATE AMINO TRANSFERASE 45 U/L (10-37)
[2023-07-26 10:00] LABS: BILIRUBIN,URINE NEGATIVE (Neg); CLARITY,URINE CLOUDY (Clear); COLOR,URINE YELLOW (Yellow); GLUCOSE, URINE NEGATIVE (Neg); KETONES,URINE NEGATIVE (Neg); LEUKOCYTE ESTERASE ,URINE LARGE (Neg); NITRITES, URINE NEGATIVE (Neg); OCCULT BLOOD,URINE TRACE-INTACT (Neg); PH,URINE 7.5 (4.8-8.0); PROTEIN,URINE NEGATIVE (Neg); UROBILINOGEN,URINE 0.2 E.U/dL (0.2-1.0)
[2023-07-26 10:09] LABS: UA COLLECTION TYPE STRAIGHT CATH
[2023-07-26 10:10] LABS: BACTERIA,URINE 4+ /HPF (Neg)
[2023-07-26 10:11] LABS: WBC CLUMPS,URINE MANY /HPF (NEGATIVE); WBC,URINE TNTC /HPF (0-4)
[2023-07-26 10:12] LABS: SQUAMOUS EPITHELIAL CELL,UR FEW /LPF (FEW); TRANSITIONAL EPI CELLS,URINE FEW /HPF
[2023-07-26] MEDS ORDERED: CefTRIAXone 2gm/D5W 50ml BAG 50 ML IV ONE (10:20)
[2023-07-26 12:14] VITALS: BP 151/67; PULSE 76; RESP 18; O2SAT 96
== END 2023-07-26 21:40 | disposition home or self-care (01) ==
LOC: ER 08:46
DX: N39.0 Urinary tract infection, site not specified (principal); R56.9 Unspecified convulsions; R11.2 Nausea with vomiting, unspecified; I11.0 Hypertensive heart disease with heart failure; E78.00 Pure hypercholesterolemia, unspecified; J44.9 Chronic obstructive pulmonary disease, unspecified; Z88.8 Allergy status to other drugs, medicaments and biological substances; Z79.899 Other long term (current) drug therapy
CPT/HCPCS: 36415; 71045; 80053; 81001; 83735; 84145; 85025; 87088; 96365; 96366; 96368; 99284; J0696; J1953; J3490; J7030; 87077; C1758

== ENCOUNTER 2023-10-20 19:00 | Emergency (ER) | payer MEDICARE, MEDICAID ==
[~2023-10-20] VITALS: Ht 180.3 cm; Wt 111.1 kg
[2023-10-20 19:07] VITALS: TEMP 97.8
[2023-10-20 19:54] LABS: BASOPHILS % (AUTO) 0.3 % (0-1); EOSINOPHILS # (AUTO) 0.3 X10'3 (0-0.9); EOSINOPHILS % (AUTO) 4.6 % (0-6); HEMATOCRIT 41.5 % (42.0-52.0); HEMOGLOBIN 13.7 g/dl (14.0-17.9); LYMPHOCYTES # (AUTO) 2.3 X10'3 (1.1-4.8); LYMPHOCYTES % (AUTO) 32.2 % (21-51); MEAN CORPUSCULAR HEMOGLOBIN 32.5 PG (27.0-31.0); MEAN CORPUSCULAR HGB CONC 33.1 g/dL (33.0-36.5); MEAN CORPUSCULAR VOLUME 98.2 FL (78-98); MEAN PLATELET VOLUME 6.5 FL (7.4-10.4); MONOCYTES # (AUTO) 0.9 X10'3 (0-0.9); MONOCYTES % (AUTO) 12.5 % (2-12); NEUTROPHILS # (AUTO) 3.6 X10'3 (1.8-7.7); NEUTROPHILS % (AUTO) 50.4 % (42-75); PLATELET COUNT 260 X10'3 (140-440); RED BLOOD COUNT 4.23 X10'6 (4.70-6.10); RED CELL DISTRIBUTION WIDTH 15.5 % (11.5-14.5); WHITE BLOOD COUNT 7.2 X10'3 (4.5-11.0)
[2023-10-20 20:04] LABS: INR 2.5 INR; PROTHROMBIN TIME 25.1 SECONDS (9.0-12.0)
[2023-10-20 20:36] LABS: BILIRUBIN,URINE NEGATIVE (Neg); CLARITY,URINE TURBID (Clear); COLOR,URINE RED (Yellow); GLUCOSE, URINE NEGATIVE (Neg); KETONES,URINE NEGATIVE (Neg); LEUKOCYTE ESTERASE ,URINE LARGE (Neg); NITRITES, URINE POSITIVE (Neg); OCCULT BLOOD,URINE MODERATE (Neg); PROTEIN,URINE NEGATIVE (Neg); UROBILINOGEN,URINE 0.2 E.U/dL (0.2-1.0)
[2023-10-20 20:41] LABS: ALANINE AMINOTRANSFERASE 27 U/L (12-78); ALBUMIN 2.3 G/DL (3.4-5.0); ALBUMIN/GLOBULIN RATIO 0.4 (1.1-1.5); ALKALINE PHOSPHATASE 75 IU/L (46-116); ANION GAP 7 (8-16); ASPARTATE AMINO TRANSFERASE 21 U/L (10-37); BILIRUBIN,TOTAL 0.2 MG/DL (0.1-1.0); BLOOD UREA NITROGEN 12 MG/DL (7-18); BUN/CREATININE RATIO 13.6 (10.0-20.0); CALCIUM 8.6 MG/DL (8.5-10.1); CHLORIDE 101 MMOL/L (99-107); CREATININE 0.88 MG/DL (0.60-1.10); GLUCOSE 91 MG/DL (70-104); POTASSIUM 4.3 MMOL/L (3.5-5.1); SODIUM 135 MMOL/L (135-145); TOTAL CARBON DIOXIDE 26.8 MMOL/L (24-32); TOTAL PROTEIN 8.2 G/DL (6.4-8.2); eCRCL 76 ML/MIN; eGFR 84 ML/MIN
[2023-10-20 20:48] LABS: UA COLLECTION TYPE OTHER
[2023-10-20 20:50] LABS: RBC,URINE TNTC /HPF (0-2)
[2023-10-20 20:51] LABS: BACTERIA,URINE 4+ /HPF (Neg)
[2023-10-20 20:52] LABS: WBC CLUMPS,URINE FEW /HPF (NEGATIVE)
[2023-10-20 20:53] LABS: WBC,URINE 50-100 /HPF (0-4)
[2023-10-20 20:54] LABS: MUCUS STRANDS FEW /LPF (Neg); SQUAMOUS EPITHELIAL CELL,UR NONE SEEN /LPF (FEW)
[2023-10-20] MEDS ORDERED: CefTRIAXone 1000mg IM Kit (w/lidocaine diluent) IM ONE (20:55)
[2023-10-20] MEDS ORDERED: CEPH-585 PO (21:03)
[2023-10-20] MEDS ORDERED: CefTRIAXone/D5W-Rocephin 1gm 50 ML IV ONE (21:50)
[2023-10-20 22:52] VITALS: BP 134/65; PULSE 72; RESP 20; O2SAT 94
== END 2023-10-20 23:00 | disposition home or self-care (01) ==
LOC: ER 19:00
DX: N39.0 Urinary tract infection, site not specified (principal); I11.0 Hypertensive heart disease with heart failure; I50.9 Heart failure, unspecified; E78.00 Pure hypercholesterolemia, unspecified; J44.9 Chronic obstructive pulmonary disease, unspecified; Z88.8 Allergy status to other drugs, medicaments and biological substances; Z79.899 Other long term (current) drug therapy; Z79.2 Long term (current) use of antibiotics
CPT/HCPCS: 36415; 80053; 81001; 84145; 85025; 85610; 87077; 87088; 87186; 96365; 99284; J0696